=== PATIENT | female | born 1975 | race Caucasian/White ===

== ENCOUNTER 2019-08-08 14:09 | Emergency (ER) | payer SELFPAY ==
[~2019-08-08] VITALS: Ht 160 cm; Wt 190.9 kg
[~2019-08-08 14:09] MED LIST: ACHYD1T PO; ALBU17AE23; ALBU17AE3; ASP325T PO; BIRTHCONTROL PO; CEPH-38 PO; DCS100C PO; DOXY-233 PO; DOXY100C2 PO; EMPA10TA PO; FLUT1DIS26; FLUT1DIS26 IH; FURO20TA4; FURO40TA4 PO; HYDR-34 PO; HYOS0.1216 PO; HYOS0.3710 PO; IBP800T PO; IBUP-15; IPRA3AMP19 IH; KCL20TCR PO; MECL25TA3 PO; METF-380 PO; METH4TAB PO; NYST15CR3 TP; ONDA-42 SL; PHEN37.53 PO; PROGESTERONE; TRAM-21 PO; TRM50T PO; WRF2T PO; birth control PO
--- NOTE | 2019-08-08 14:33 | ED Lower Extremity ---
General Chief Complaint: Lower Extremity Stated Complaint: FALL Nursing Triage Note: TO ED PER EMS FROM [facility]. SHE WAS WALKING IN TO [facility] WHEN SHE TRIPPED AND FELL. C/O PAIN R KNEE ABRASION WITH SM BRUISE NOTED ON KNEE. PAIN IN L ANKLE. Nursing Sepsis Screen: No Definite Risk History of Present Illness Date Seen by Provider: Aug 08, 2019 Time Seen by Provider: 14:15 Initial Comments 44-year-old female presents via EMS after falling in a parking lot pothole and unable to get up on her own. She is complaining of pain to her right knee and left ankle. She is doing steroid injections on her right knee and had one yesterday. She denies any other injuries related to the fall. She has s prained her ankle in the past. She is having hydrocodone for chronic back pain. Onset: just prior to arrival Pain/Injury Location: right knee; left ankle Method of Injury: fell Modifying Factors: Improves With Rest Allergies and Home Medications Allergies Coded Allergies: ampicillin (Unverified Allergy, Mild, RASH, CHILLS, DIARRHEA, VOMITING, 03/20/13) meperidine HCl (Verified Allergy, Unknown, 12/21/14) Home Medications Empagliflozin 10 Mg Tablet, 10 MG PO DAILY, (Reported) Meclizine HCl 25 Mg Tablet, 25 MG PO Q6H PRN for dizziness Prescribed by: JUDD VACA on 12/21/14 1551 Phentermine HCl 37.5 Mg Tablet, 37.5 MG PO DAILY, (Reported) Patient Home Medication List Home Medication List Reviewed: Yes Review of Systems Constitutional: no symptoms reported, see HPI Cardiovascular: no symptoms reported, see HPI Musculoskeletal: see HPI, joint pain (left ankle and foot, right knee), joint swelling ( left ankle) All Other Systems Reviewed Negative Unless Noted: Yes Past Nnpbsig-Iyssas-Ozxlyk Hx Past Med/Social Hx: Reviewed Nursing Past Med/Soc Hx Patient Social History Alcohol Use: Denies Use Recreational Drug Use: No Smoking Status: Never a Smoker Recent Foreign Travel: No Contact w/Someone Who Travel: No Recent Infectious Disease Expo: No Recent Hopitalizations: Yes Seasonal Allergies Seasonal Allergies: Yes Past Medical History Surgeries: Yes (NOE FILTER) Section, 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 Respiratory: Yes Asthma Cardiac: Yes (BLOOD CLOTS) Neurological: No 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 oz. 169.814970iz; 74.00 BMI Method:Stated General Appearance: WD/WN, no apparent distress, obese (Morbid) Cardiovascular: normal peripheral pulses, regular rate, rhythm, no murmur Respiratory: chest non-tender, lungs clear, normal breath sounds Hips: bilateral hip non-tender, bilateral hip normal inspection, bilateral hip normal range of motion Knees: right knee joint effusion (small), right knee soft tissue tenderness, right knee other (superficial abrasion, medial anterior) Ankles: left ankle normal inspection, left ankle normal range of motion, left ankle bone tenderness (medial), left ankle soft tissue tenderness Feet: bilateral foot non-tender, bilateral foot normal inspection, bilateral foot normal range of motion Neurologic/Tendon: normal sensation, normal motor functions, normal tendon functions Neurologic/Psychiatric: no motor/sensory deficits, alert, normal mood/affect, oriented x 3 Skin: normal color, warm/dry Progress/Results/Core Measures Results/Orders My Orders Orders - AR EHCK Knee, Right, 3 Views (08/08/19 14:22) Foot, Left, 3 Views (08/08/19 14:22) Ankle, Left, 3 Views (08/08/19 14:22) Dipht,Pertuss(Acell),Tet Adult (Boostrix (08/08/19 14:45) Medications Given in ED Current Medications Medications Dose Ordered Sig/Armando Route Start Time Stop Time Status Last Admin Dose Admin Diphtheria/ Tetanus/Acell Pertussis 0.5 ml ONCE ONCE IM 08/08/19 14:45 08/08/19 14:46 DC 08/08/19 15:14 0.5 ML Vital Signs/I&O 08/08/19 14:11 Temp 36.7 Pulse 82 Resp 18 B/P (MAP) 176/99 (124) Pulse Ox 98 O2 Delivery Room Air Blood Pressure Mean: 124 Progress Progress Note : Time: 14:15 Progress Note Patient seen and evaluated, ice packs to right knee and left ankle. We'll obtain x-rays. Tetanus vaccine. Diagnostic Imaging Diagonstic Imaging: Xray Plain Films/CT/US/NM/MRI: ankle Comments NAME: BRADEN HARE [facility] REC#: [id number] PT STATUS: REG ER : 1975 PHYSICIAN: AR HECK ADMIT DATE: 08/08/19/ER Draft Date of Exam:08/08/19 ANKLE, LEFT, 3 VIEWS INDICATION: Fall. Possible injury. COMPARISON: None. FINDINGS: Three radiographic views of the left ankle were obtained. There is small linear area of extraosseous density adjacent to the distal tip of the fibula. Findings could be on the basis of acute avulsion fracture. No other acute appearing osseous abnormality is seen. Joint spaces are maintained. No unexpected radiopaque foreign bodies are seen. IMPRESSION: Potential acute avulsion fracture of the distal fibula. Dictated on workstation # [id number] Dict: 08/08/19 1508 Trans: 08/08/19 1510 [id number] Interpreted by: CINTHYA KNIGHT MD Electronically signed by: Reviewed: Reviewed by Me Diagonstic Imaging: Xray Plain Films/CT/US/NM/MRI: other (foot) Comments NAME: BRADEN HARE [facility] REC#: [id number] PT STATUS: REG ER : 1975 PHYSICIAN: AR HECK ADMIT DATE: 08/08/19/ER Draft Date of Exam:08/08/19 FOOT, LEFT, 3 VIEWS INDICATION: Fall. Possible injury. COMPARISON: None. FINDINGS: Three views of the left foot demonstrate no acute fracture or dislocation. There are no focal osseous lesions. There is no soft tissue swelling. Joint spaces are well maintained. No radiopaque foreign bodies are seen. IMPRESSION: No acute fractures or dislocations of the left foot. Dictated on workstation # [id number] Dict: 08/08/19 1510 Trans: 08/08/19 1512 [facility] [id number] Interpreted by: CINTHYA KNIGHT MD Electronically signed b Comments [facility] [place], [place] NAME: BRADEN HARE [facility] REC#: [id number] PT STATUS: REG ER : 1975 PHYSICIAN: AR HECK ADMIT DATE: 08/08/19/ER Draft Date of Exam:08/08/19 KNEE, RIGHT, 3 VIEWS CLINICAL INDICATION: Patient fell in [employer] parking lot today and was unable to get up. Patient's left ankle is swelling with right knee numbness. EXAM: X-ray of the right knee, 3 views. COMPARISON: X-rays of the right knee dated 02/25/2008. FINDINGS: There is no acute fracture or dislocation. There is severe medial compartment narrowing. There are moderately hypertrophic spurs involving the mediolateral compartment and small spurs along the patellofemoral compartment. There is no gross knee effusion. Vascular calcifications and soft tissue calcifications are noted. IMPRESSION: Degenerative disease of the right knee with no gross acute fracture or dislocation. Dictated on workstation # [id number] Dict: 08/08/19 1507 Trans: 08/08/19 1512 [id number] Interpreted by: VIVEK ROWELL MD Electronically signed by: Reviewed: Reviewed by Me Departure Impression Primary Impression: Fall Qualified Codes: W19.XXXA - Unspecified fall, initial encounter Additional Impressions: Contusion of right knee Qualified Codes: S80.01XA - Contusion of right knee, initial encounter Left ankle sprain Qualified Codes: S93.492A - Sprain of other ligament of left ankle, initial encounter Avulsion fracture of ankle Qualified Codes: S82.892A - Other fracture of left lower leg, initial encounter for closed fracture Disposition: HOME, SELF-CARE Condition: Improved Departure-Patient Inst. Decision time for Depature: 15:15 Referrals: KATHI ALVAREZ MD (PCP/Family) Primary Care Physician Patient Instructions: Ankle Sprain (DC) Add. Discharge Instructions: Ice and elevate right knee and left ankle. Follow-up with your primary care provider in approximately one week to reevaluate the right knee and left ankle. Continue to use her home pain medication as needed. Use a cane holding it in your right hand or crutches, partial weight bearing left ankle. Manav wrap to left ankle and right knee as tolerated. Air cast to left ankle, when ambulating. Gentle ROM to left ankle and right knee. Aspirin 325 mg, one daily. Return to the emergency department for new, urgent health care needs. All discharge instructions reviewed with patient and/or family. Voiced understyancy hamm. Copy Copies To 1: KATHI ALVAREZ MD, AMY ARNP Aug 08, 2019 14:33
[2019-08-08] MEDS ORDERED: TETANUS,DIPTH,PERTUSS P/F (BOOSTRIX) 0.5 ML VIAL IM ONE (14:45)
--- NOTE | 2019-08-08 15:10 | Diagnostic Imaging Report ---
INDICATION: Fall. Possible injury. COMPARISON: None. FINDINGS: Three radiographic views of the left ankle were obtained. There is small linear area of extraosseous density adjacent to the distal tip of the fibula. Findings could be on the basis of acute avulsion fracture. No other acute appearing osseous abnormality is seen. Joint spaces are maintained. No unexpected radiopaque foreign bodies are seen. IMPRESSION: Potential acute avulsion fracture of the distal fibula. Dictated by: Dictated on workstation # [id number]
--- NOTE | 2019-08-08 15:12 | Diagnostic Imaging Report ---
CLINICAL INDICATION: Patient fell in [employer] [place] today and was unable to get up. Patient's left ankle is swelling with right knee numbness. EXAM: X-ray of the right knee, 3 views. COMPARISON: X-rays of the right knee dated 02/25/2008. FINDINGS: There is no acute fracture or dislocation. There is severe medial compartment narrowing. There are moderately hypertrophic spurs involving the mediolateral compartment and small spurs along the patellofemoral compartment. There is no gross knee effusion. Vascular calcifications and soft tissue calcifications are noted. IMPRESSION: Degenerative disease of the right knee with no gross acute fracture or dislocation. Dictated by: Dictated on workstation # [id number]
--- NOTE | 2019-08-08 15:12 | Diagnostic Imaging Report ---
INDICATION: Fall. Possible injury. COMPARISON: None. FINDINGS: Three views of the left foot demonstrate no acute fracture or dislocation. There are no focal osseous lesions. There is no soft tissue swelling. Joint spaces are well maintained. No radiopaque foreign bodies are seen. IMPRESSION: No acute fractures or dislocations of the left foot. Dictated by: Dictated on workstation # [id number]
[2019-08-08] MEDS ORDERED: HYDROcodone/APAP 5 MG/325 MG (LORTAB) TAB PO ONE (15:45)
[2019-08-08 15:54] VITALS: BP 164/116
--- NOTE | 2019-08-08 15:54 | NUR ---
YUMIKO AND AIR CAST APPLIED BY Danilo HECK APRN.
== END 2019-08-08 15:54 | disposition home or self-care (01) ==
LOC: EDUNIT# 14:09 → ER 14:10
DX: S80.01XA Contusion of right knee, initial encounter (principal); S93.492A Sprain of other ligament of left ankle, initial encounter; S82.402A Unspecified fracture of shaft of left fibula, initial encounter for closed fracture; W19.XXXA Unspecified fall, initial encounter; Y92.481 Parking lot as the place of occurrence of the external cause; M54.9 Dorsalgia, unspecified; G89.29 Other chronic pain; M17.11 Unilateral primary osteoarthritis, right knee
CPT/HCPCS: 73562; 73610; 73630; 90715

== ENCOUNTER → 2019-10-22 | Outpatient (CLI) | payer OTHER | LOC: CARD 13:30 | PROVIDERS: ATTEND Family Medicine | DX: E66.01 Morbid (severe) obesity due to excess calories (principal); R06.02 Shortness of breath ==

== ENCOUNTER → 2020-03-20 | Outpatient (CLI) | payer OTHER ==
--- NOTE | 2020-03-20 13:03 | Diagnostic Imaging Report ---
PROCEDURE: US right lower extremity venous. TECHNIQUE: Multiple real-time grayscale images were obtained over the right lower extremity in various projections. Additional spectral analysis and color Doppler duplex images were also obtained. INDICATION: Right calf pain. FINDINGS: Study is somewhat compromised due to patient body habitus. There is no evidence of right lower extremity DVT. Right lower extremity deep venous system shows normal compressibility with normal response to augmentation and Valsalva. No fluid collection or mass is detected. IMPRESSION: No evidence of right lower extremity DVT. Dictated by: Dictated on workstation # [id number]
== END ==
LOC: RAD 11:01
PROVIDERS: ATTEND Nurse Practitioner
DX: M79.661 Pain in right lower leg (principal)

== ENCOUNTER 2021-01-12 06:10 | Outpatient (CLI) | payer SELFPAY ==
[~2021-01-12] VITALS: Ht 160 cm; Wt 181.1 kg
[~2021-01-12 06:10] MED LIST changes: -PHEN37.53 PO; +PHEN37.58 PO
[2021-01-13] MEDS ORDERED: MELO7.5T46 PO (11:16)
[2021-01-13] MEDS ORDERED: FLUT1DIS26 IH (11:16)
[2021-01-13] MEDS ORDERED: RT-ALBUINH IH (11:16)
[2021-01-13] MEDS ORDERED: ACHD5005 PO (11:16)
== END 2021-01-13 11:17 ==
LOC: PREOP 06:10
PROVIDERS: ATTEND Podiatrist Foot & Ankle Surgery
DX: Z01.818 Encounter for other preprocedural examination (principal)

== ENCOUNTER 2021-01-16 11:12 | Day surgery (SDC) | payer SELFPAY ==
[2021-01-16] VITALS (10 sets, daily range): BP systolic 121–149; BP diastolic 76–99
[~2021-01-16] VITALS: Ht 160 cm; Wt 181.1 kg
[~2021-01-16 11:12] MED LIST changes: +ACHD5005 PO; +MELO7.5T46 PO; +RT-ALBUINH IH
[2021-01-16] MEDS ORDERED: CLINDAMYCIN 600 MG/50 ML IVPB 50 ML IV ONE (11:30)
[2021-01-16] MEDS ORDERED: LACTATED RINGERS 1,000 ML IV PRN (11:30)
[2021-01-16] MEDS ORDERED: fentaNYL INJ 100 MCG/2 ML AMP ONE (11:37)
[2021-01-16] MEDS ORDERED: proPOfol 200 MG/20 ML (DIPRIVAN) VIAL IV ONE (11:37)
[2021-01-16] MEDS ORDERED: LIDOCAINE PF 2% 5 ML (XYLOCAINE) VIAL ONE (11:37)
[2021-01-16] MEDS ORDERED: MIDAZOLAM 2 MG/2 ML (VERSED) VIAL ONE (11:37)
[2021-01-16] MEDS ORDERED: ONDANSETRON 4 MG/2 ML (SDV) Z0FRAN ONE (11:37)
[2021-01-16] MEDS ORDERED: LIDOCAINE 1% INJ 20 ML 20 ML VIAL ONE (12:10)
[2021-01-16] MEDS ORDERED: BUPIVACAINE 0.5% 30 ML (SENSORCAINE) VIAL ONE (12:10)
--- NOTE | 2021-01-16 12:34 | Progress Note-Pre Operative ---
Pre-Operative Progress Note H&P Reviewed The H&P was reviewed, patient examined and no changes noted. Date Seen by Provider: Jan 16, 2021 Time Seen by Provider: 12:33 Date H&P Reviewed: Jan 16, 2021 Time H&P Reviewed: 12:33 Pre-Operative Diagnosis: Plantar Fasciitis, left JED ROQUE DPM Jan 16, 2021 12:34
[2021-01-16] MEDS ORDERED: MIDAZOLAM 2 MG/2 ML (VERSED) VIAL IV ONE (12:45)
[2021-01-16] MEDS ORDERED: SEVOFLURANE (ULTANE) 15 ML INHAL SOLN ONE (13:31)
--- NOTE | 2021-01-16 13:37 | Progress Note-Post Operative ---
Post-Operative Progess Note Surgeon (s)/Record Pressman (s) Surgeon JED ROQUE DPM Record Pressman: none Pre-Operative Diagnosis Plantar Fasciitis, left Post-Operative Diagnosis same Procedure & Operative Findings Date of Procedure 01/16/21 Procedure Performed/Findings Endoscopic Plantar Fascial release, left Anesthesia Type General Estimated Blood Loss Estimated blood loss (mL): Minimal Specimens/Packing Specimens Removed None JED ROQUE DPM Jan 16, 2021 13:37
[2021-01-16] MEDS ORDERED: ACHD5005 PO (13:40)
[2021-01-16] MEDS ORDERED: morphine INJ 10 MG/ML 1ML (SYR OR VIAL) IVP ONE (13:45)
[2021-01-16] MEDS ORDERED: ONDANSETRON 4 MG/2 ML (SDV) Z0FRAN IVP PRN (13:45)
[2021-01-16] MEDS ORDERED: LACTATED RINGERS 1,000 ML IV SCH (13:45)
[2021-01-16] MEDS ORDERED: PROMETHAZINE INJ 25 MG/ML (PHENERGAN) AMP IVP ONE (13:45)
[2021-01-16] MEDS ORDERED: HYDROmorphone 2 MG/ML VIAL (DILAUDID) IV ONE (13:45)
[2021-01-16] MEDS ORDERED: HYDROcodone/APAP 5 MG/325 MG (LORTAB) TAB PO PRN (13:45)
--- NOTE | 2021-01-16 15:02 | Anesthesia-General Post-Op ---
General Patient Condition Mental Status/LOC: Same as Preop Cardiovascular: Satisfactory Nausea/Vomiting: Absent Respiratory: Satisfactory Pain: Controlled Complications: Absent Post Op Complications Complications None Follow Up Care/Instructions Patient Instructions None needed. Anesthesia/Patient Condition Patient Condition Patient is doing well, no complaints, stable vital signs, no apparent adverse anesthesia problems. No complications reported per nursing. ANGEL TANG CRNA Jan 16, 2021 15:02
--- NOTE | 2021-01-16 15:46 | Physical Therapy Ortho Eval ---
PT Orthopedic Evaluation Type of Surgery left plantar fasciitis Prior Level of Function Current Living Status: Spouse Locomotion (Upon Admit): Independent Established Durable Medical Eq: Standard Walker Subjective Subjective Patient in bed pre tx, agrees to PT, has no pain, states her left foot is pretty numb, she can move her toes and ankle. Entry Into Home: Stairs Without Railing Other Obstacles: Patient states the stair to enter her home is very small Motor Control Motor Control: Motor Control WNL ROM ROM: WFL Transfer SCALE: Activities may be completed with or without assistive devices. 9-Jhzsmfexew-aferool completes the activity by him/herself with no assistance from a helper. 5-Set-up or Clean-up Assistance-helper sets up or cleans up; patient completes activity. [place] assists only prior to or following the activity. 4-Supervision or Touching Assistance-helper provides verbal cues and/or touching/steadying and/or contact guard assistance as patient completes activity. Assistance may be provided throughout the activity or intermittently. 3-Partial/Moderate Assistance-helper does LESS THAN HALF the effort. T[place]en lifts, holds or supports trunk or limbs, but provides less than half the effort. 2-Substantial/Maximal Assistance-helper does MORE THAN HALF the effort. [place] lifts or holds trunk or limbs and provides more than half the effort. 1-Wkmvhsybw-hegrov does ALL the effort. Patient does none of the effort to complete the activity. Or, the assistance of 2 or more helpers is required for the patient to complete the activity. If activity was not attempted, code reason: 7-Patient Refused. 9-Not Applicable-not attempted and the patient did not perform the activity before the current illness, exacerbation or injury. 10-Not Attempted due to Environmental Limitations-(lack of equipment, weather restraints, etc.). 88-Not Attempted due to Medical Conditions or Safety Concerns. Transfers (B, C, W/C) (QC): 4 Gait Right Lower Extremity: Right Weight Bearing Status RLE: Full Weight Bearing Left Lower Extremity: Left Weight Bearing Status LLE: Non Weight Bearing Other Weight Bearing Inst.: She will be Partial Weight bearing (left foot) after 24 hours with crutches Summary/Comments Patient can stand with CGA, perform a stand pivot transfer with CGA but she cannot ambulate without violating her weight bearing status. Patient cannot ambulate using a rolling walker. A wheelchair was obtained and she was transported to the restroom where she performed a stand pivot transfer with CGA to the toilet and off of the toilet. Nurse notified of the situation. Wheelchair Wheelchair (QC): 4 Distance: 30' Treatment Rendered Treatment: Therapeutic Exercises, Gait Train Exercise Instruction: Ankle Pumps, Other (toe flex/ext) Assessment/Goals Goal Time Frame: 1 Visit Understands HEP: Yes Safe Ambulation: No Plan Treatment Plan: Discharge PT/Family Agrees to Plan: Yes Time Time In: 1525 Time Out: 1536 Total Billed Treatment Time: 11 Billed Treatment Time 1 visit EV 11' KEARA BETANCOURT PT Jan 16, 2021 15:46
--- NOTE | 2021-01-16 19:34 | OPERATIVE REPORT ---
DATE OF SERVICE: 01/16/2021 SURGEON: Maite Roque DPM. PREOPERATIVE DIAGNOSIS: Plantar fasciitis, left foot. POSTOPERATIVE DIAGNOSIS: Plantar fasciitis, left foot. PROCEDURE: Endoscopic plantar fascial release, left foot. WOUND CLASS: Clean. ANESTHESIA: General. HEMOSTASIS: Pneumatic ankle tourniquet at 250 mmHg. INDICATIONS: This 45-year-old female presents complaining of a painful left heel. This chronic pain has been unresponsive to conservative treatment and she is willing to pursue surgical intervention after risk and complications were discussed at length. No guarantees were extended to the patient and she is willing to proceed. DESCRIPTION OF PROCEDURE: The patient was brought back to the operating table, placed in secure supine position. Appropriate timeout was performed. A general anesthetic was induced. A pneumatic ankle tourniquet was placed on the left lower extremity over several layers of padding. The left foot was then prepped and draped in normal sterile manner. The left foot was then elevated and allowed to exsanguinate after which the tourniquet was inflated to 250 mmHg. Attention was then directed to the medial aspect of the left heel where a 0.5 cm vertical incision was created at the juncture of the plantar and dorsal skin just anterior to the calcaneal tuberosity area. The incision was deepened in the same plane with blunt dissection where the plantar fascia was palpated. Next, a blunt blade was applied along the inferior aspect of the plantar fascia the plantar fascia from its overlying adipose tissue. Next, an obturator and cannula were introduced into the medial incision along the inferior plantar fascia and then tenting the lateral skin of the left heel. A second 0.5 cm vertical incision was created allowing the obturator and cannula to pass through the lateral portal area. Attention was then directed to the medial portal after the obturator was withdrawn. The cannula was held in place. A 30-degree 3 mm camera was introduced into the lateral portal visualizing the inferior aspect of the plantar fascia. The medial third of the plantar fascia was released under direct visualization utilizing with a hook blade followed by a triangular blade. Percutaneous palpation of the medial arch indicated good reduction of the tension to the plantar fascia, also with direct visualization of the release was good confirmation of adequate and appropriate release of the medial band of the plantar fascia. The instrumentation was withdrawn from the foot after which the wound was flushed after the cannula was then withdrawn as well. The area was then inspected and no other abnormalities were identified. The skin closure was performed with a simple interrupted type stitch with 4-0 Prolene both to the medial and lateral incisions. Postoperative injection consisted of 10 mL of 0.5% Marcaine injected in a local infusion to the surgical sites. An additional 10 mg of dexamethasone was injected into the medial plantar aspect of the left heel. Postoperative dressing consisted of Betadine soaked Adaptic, sterile 4 x 4, sterile Kerlix all secured with Coban wrap. The patient tolerated the anesthesia and procedure well, was transported from the operating room to the recovery room with vital signs stable and vascular status intact to all the digits of the left foot. She is to be nonweightbearing for the first 24 hours and then proceed to partial weightbearing to tolerance. We will see her back in the office in 10 days' period of time or sooner if necessary. Job ID: [id number] DocumentID: [id number] Dictated Date: 01/16/2021 13:51:17 Windows Application Packager Date: 01/16/2021 19:33:06 Dictated By: MAITE ROQUE DPM
== END 2021-01-16 15:50 | disposition home or self-care (01) ==
LOC: SDC 11:12
PROVIDERS: ATTEND Podiatrist Foot & Ankle Surgery
DX: M72.2 Plantar fascial fibromatosis (principal); J45.909 Unspecified asthma, uncomplicated; E66.01 Morbid (severe) obesity due to excess calories; Z68.45 Body mass index [BMI] 70 or greater, adult; Z98.890 Other specified postprocedural states; Z79.899 Other long term (current) drug therapy; Z79.891 Long term (current) use of opiate analgesic; Z88.1 Allergy status to other antibiotic agents
CPT/HCPCS: 87081

== ENCOUNTER 2021-04-04 12:22 | Emergency (ER) | payer OTHER ==
[~2021-04-04] VITALS: Ht 160 cm; Wt 186.0 kg
--- NOTE | 2021-04-04 12:41 | ED Cough/URI ---
General Chief Complaint: Cough/Cold/Flu Symptoms Stated Complaint: ASTHMA ATTACK Source: patient Exam Limitations: no limitations History of Present Illness Date Seen by Provider: Apr 04, 2021 Time Seen by Provider: 12:25 Initial Comments 45-year-old female with past medical history of asthma and remote history of DVT/PE now off of anticoagulation with an IVC filter in place coming in due to what she states is an asthma attack. She said day she began having a cough and feeling cold which her son had last week. Yesterday began feeling like she was wheezing and like her asthma was flaring up. Began using her breathing treatments, but she believes they are , and she does not believe they have been helping her as much as they usually would now. But she said several hours ago with little help. Denies any new leg swelling or pain. Denies any hemoptysis. Denies any surgery within the past month. Currently denying any chest pain or fever. Allergies and Home Medications Allergies Coded Allergies: ampicillin (Unverified Allergy, Mild, RASH, CHILLS, DIARRHEA, VOMITING, 03/20/13) meperidine HCl (Verified Allergy, Unknown, 12/21/14) Patient Home Medication List Home Medication List Reviewed: Yes Albuterol Sulfate (Proair Hfa) 1 Puff Puff, 2 PUFF IH Q6H PRN for WHEEZING, (Reported) Entered as Reported by: PAZ MACIEL on 01/13/21 1116 Albuterol Sulfate (Proair Hfa) 1 Puff Puff, 2 PUFF IH Q4H Prescribed by: IGOR JOHNS on 04/04/21 1352 Fluticasone/Salmeterol (Advair 250-50 Diskus) 1 Each Blst.w.dev, 1 EACH IH BID, (Reported) Entered as Reported by: PAZ MACIEL on 01/13/21 1116 Fluticasone/Salmeterol (Advair 250-50 Diskus) 1 Each Blst.w.dev, 1 EACH IH BID Prescribed by: IGOR JOHNS on 04/04/21 1352 Hydrocodone/Acetaminophen (Hydrocodone-Acetamin 5-325 mg) 1 Each Tablet, 1 TAB PO DAILY, (Reported) Entered as Reported by: PAZ MACIEL on 01/13/21 1116 Hydrocodone/Acetaminophen (Hydrocodone-Acetamin 5-325 mg) 1 Each Tablet, 1 TAB PO Q4H PRN for PAIN-MODERATE (5-7) Prescribed by: JED ROQUE on 01/16/21 1341 Meloxicam (Meloxicam) 7.5 Mg Tablet, 7.5 MG PO BID, (Reported) Entered as Reported by: PAZ MACIEL on 01/13/21 1116 Review of Systems Review of Systems Constitutional: No chills, No fever EENTM: No blurred vision Respiratory: cough; No hemoptysis; short of breath Cardiovascular: No chest pain Gastrointestinal: No abdominal pain, No diarrhea, No nausea, No vomiting Genitourinary: no symptoms reported Musculoskeletal: no symptoms reported Skin: no symptoms reported Psychiatric/Neurological: No Symptoms Reported Hematologic/Lymphatic: No Symptoms Reported Immunological/Allergic: no symptoms reported All Other Systems Reviewed Negative Unless Noted: Yes Past Hyszlxk-Iyvyku-Mttaoc Hx Patient Social History Tobacco Use?: No Immunizations Up To Date First/Initial COVID19 Vaccinat: 01/06/21 Second COVID19 Vaccination Pito: 01/06/21 Third COVID19 Vaccination Date: 01/06/21 Seasonal Allergies Seasonal Allergies: Yes Past Medical History Surgeries: Yes (cerclage, c/s x2, NOE FILTER,) Section, 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 Respiratory: Yes Asthma Currently Using CPAP: No Currently Using BIPAP: No Cardiac: Yes (BLOOD CLOTS) Neurological: No Reproductive Disorders: Yes (DUB, MENORRHAGIA) [employer] History: 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 Genitourinary: No Gastrointestinal: Yes Irritable Bowel Musculoskeletal: Yes Degenerate Disk Disease, Chronic Back Pain Endocrine: No HEENT: No Cancer: No Psychosocial: No Integumentary: No Blood Disorders: No Physical Exam Vital Signs - First Documented 04/04/21 12:35 Temp 35.7 Pulse 86 Resp 16 B/P (MAP) 178/95 (122) Pulse Ox 99 O2 Delivery Room Air Capillary Refill : Height: 5'3" Weight: 373lbs. oz. 169.108527vk; 70.74 BMI Method:Stated General Appearance: WD/WN, mild distress HEENT: PERRL/EOMI, normal ENT inspection, pharynx normal Neck: non-tender, full range of motion, supple, normal inspection Respiratory: chest non-tender, no accessory muscle use, wheezing Cardiovascular: regular rate, rhythm, no edema, no murmur Gastrointestinal: normal bowel sounds, non tender, soft; No guarding, No rebound Extremities: normal range of motion, non-tender, normal inspection, no pedal edema, no calf tenderness, normal capillary refill Neurologic/Psychiatric: no motor/sensory deficits, alert, normal mood/affect Skin: normal color, warm/dry Lymphatic: no adenopathy Progress/Results/Core Measures Suspected Sepsis SIRS Temperature: Pulse: Respiratory Rate: Laboratory Tests 04/04/21 12:30: White Blood Count 9.1 Blood Pressure / Mean: Laboratory Tests 04/04/21 12:30: Creatinine 0.76, INR Comment 1.0, Platelet Count 225, Total Bilirubin 0.5 Results/Orders Lab Results Laboratory Tests Test 04/04/21 12:30 Range/Units White Blood Count 9.1 4.3-11.0 10^3/uL Red Blood Count 4.37 3.80-5.11 10^6/uL Hemoglobin 13.8 11.5-16.0 g/dL Hematocrit 41 35-52 % Mean Corpuscular Volume 94 80-99 fL Mean Corpuscular Hemoglobin 32 25-34 pg Mean Corpuscular Hemoglobin Concent 34 32-36 g/dL Red Cell Distribution Width 12.1 10.0-14.5 % Platelet Count 225 130-400 10^3/uL Mean Platelet Volume 9.9 9.0-12.2 fL Immature Granulocyte % (Auto) 0 % Neutrophils (%) (Auto) 69 42-75 % Lymphocytes (%) (Auto) 20 12-44 % Monocytes (%) (Auto) 6 0-12 % Eosinophils (%) (Auto) 4 0-10 % Basophils (%) (Auto) 1 0-10 % Neutrophils # (Auto) 6.2 1.8-7.8 10^3/uL Lymphocytes # (Auto) 1.8 1.0-4.0 10^3/uL Monocytes # (Auto) 0.6 0.0-1.0 10^3/uL Eosinophils # (Auto) 0.4 H 0.0-0.3 10^3/uL Basophils # (Auto) 0.1 0.0-0.1 10^3/uL Immature Granulocyte # (Auto) 0.0 0.0-0.1 10^3/uL Prothrombin Time 13.3 12.2-14.7 SEC INR Comment 1.0 0.8-1.4 Activated Partial Thromboplast Time 29 24-35 SEC D-Dimer 0.89 H 0.00-0.49 UG/ML Sodium Level 138 135-145 MMOL/L Potassium Level 4.0 3.6-5.0 MMOL/L Chloride Level 105 98-107 MMOL/L Carbon Dioxide Level 20 L 21-32 MMOL/L Anion Gap 13 5-14 MMOL/L Blood Urea Nitrogen 10 7-18 MG/DL Creatinine 0.76 0.60-1.30 MG/DL Estimat Glomerular Filtration Rate 82 BUN/Creatinine Ratio 13 Glucose Level 104 70-105 MG/DL Calcium Level 8.8 8.5-10.1 MG/DL Corrected Calcium 8.9 8.5-10.1 MG/DL Total Bilirubin 0.5 0.1-1.0 MG/DL Aspartate Amino Transf (AST/SGOT) 19 5-34 U/L Alanine Aminotransferase (ALT/SGPT) 17 0-55 U/L Alkaline Phosphatase 73 40-136 U/L Troponin I < 0.028 <0.028 NG/ML B-Type Natriuretic Peptide 34.6 <100.0 PG/ML Total Protein 7.8 6.4-8.2 GM/DL Albumin 3.9 3.2-4.5 GM/DL SARS-CoV-2 RNA (RT-PCR) Not Detected Not Detecte My Orders Orders - IGOR JOHNS MD Ekg Tracing (04/04/21 12:32) Monitor-Rhythm Ecg Trace Only (04/04/21 12:32) BNP (04/04/21 12:32) Cbc With Automated Diff (04/04/21 12:32) Comprehensive Metabolic Panel (04/04/21 12:32) Fibrin Degradation Products (04/04/21 12:32) Protime With Inr (04/04/21 12:32) Partial Thromboplastin Time (04/04/21 12:32) Troponin I (04/04/21 12:32) Covid 19 Inhouse Test (04/04/21 12:32) Albuterol/Ipra Inhalation Soln (Duoneb I (04/04/21 12:45) Dexamethasone Injection (Decadron Injec (04/04/21 12:45) Ct Angio Chest W (04/04/21 13:09) Iohexol Injection (Omnipaque 350 Mg/Ml 1 (04/04/21 13:30) Received Contrast (Hold Metformin- Contr (04/04/21 13:30) Ns (Ivpb) (Sodium Chloride 0.9% Ivpb Bag (04/04/21 13:30) Medications Given in ED Current Medications Medications Dose Ordered Sig/Armando Route Start Time Stop Time Status Last Admin Dose Admin Albuterol/ Ipratropium 3 ml ONCE ONCE IH 04/04/21 12:45 04/04/21 12:47 DC 04/04/21 14:04 3 ML Dexamethasone Sodium Phosphate 10 mg ONCE ONCE IV 04/04/21 12:45 04/04/21 12:47 DC 04/04/21 13:14 10 MG Iohexol 100 ml ONCE ONCE IV 04/04/21 13:30 04/04/21 13:31 DC 04/04/21 13:34 100 ML Sodium Chloride 100 ml ONCE ONCE IV 04/04/21 13:30 04/04/21 13:31 DC 04/04/21 13:34 80 ML Vital Signs/I&O 04/04/21 04/04/21 12:35 14:06 Temp 35.7 Pulse 86 Resp 16 B/P (MAP) 178/95 (122) Pulse Ox 99 100 O2 Delivery Room Air Room Air Capillary Refill : Progress Note : Progress Note 45-year-old female with above history coming in because she is acutely feeling short of breath and feels like she is having an asthma attack. ABCs were intact and vitals were stable on presentation although she is breathing fast. She has some mild wheezing on exam and does appear to be moving air. Will trial a DuoNeb as well as Decadron given her history of asthma. No signs or symptoms of a DVT. She does have an IVC filter in place, however has been in place for many for at least a couple years. Per Chase criteria she has a least moderate risk for a PE. We will do a D-dimer to further risk stratify her. Also send basic labs including cardiac biomarkers and a Covid test. Chest x-ray also ordered. Covid test negative, cardiac biomarkers normal, normal kidney function. D-dimer unfortunately elevated. CTA chest ordered and interpreted by me showing no pneumonia, pneumothorax, no large pulmonary embolism. Following up after her breathing treatment and steroid injection, she was significantly better. This does seem more consistent with an asthma exacerbation at this time that is mild. I suspect like the patient was stating that her albuterol is and not functioning as well. She also likely has a URI which made symptoms worse. I believe she is stable for discharge. She was sent home with strict return precautions ECG Initial ECG Impression Date: Apr 04, 2021 Initial ECG Impression Time: 12:41 Initial ECG Rate: 68 Initial ECG Rhythm: Normal Sinus Comment Narrow QRS, normal axis, no significant ST changes or T wave abnormalities Diagnostic Imaging Diagonstic Imaging: CT Plain Films/CT/US/NM/MRI: chest Comments [facility], [place] NAME: [facility]AD[facility]ARE [facility] REC#: [id number] PT STATUS: REG ER : 1975 PHYSICIAN: IGOR JOHNS MD ADMIT DATE: 04/04/21/ER Draft Date of Exam:04/04/21 CT ANGIO CHEST W PROCEDURE: CT angiography of the chest with contrast. TECHNIQUE: Multiple contiguous axial images were obtained through the chest after uneventful bolus administration of intravenous contrast. 3D reconstructed CTA MIP acquisitions were also performed. Auto Exposure Controls were utilized during the CT exam to meet ALARA standards for radiation dose reduction. INDICATION: Shortness of air. Cough. Elevated D-dimer. History of DVT. IVC filter. COMPARISON: CTA chest 07/28/2011. FINDINGS: No pulmonary emboli. Normal caliber thoracic aorta. Normal heart size. No pericardial effusion. No lymphadenopathy. The lungs are clear. No pleural effusion or pneumothorax. The visualized upper abdominal contents are negative. No acute osseous findings. IMPRESSION: 1. No pulmonary emboli. 2. No acute CT findings in the chest. Dictated on workstation # [id number] Dict: 04/04/21 1344 Trans: 04/04/21 1357 [facility] [id number] Interpreted by: CANDY EAGLE MD Electronically signed by: Departure Impression Primary Impression: Asthma exacerbation Qualified Codes: J45.901 - Unspecified asthma with (acute) exacerbation Additional Impression: URI (upper respiratory infection) Qualified Codes: J06.9 - Acute upper respiratory infection, unspecified Disposition: HOME, SELF-CARE Condition: Stable Departure-Patient Inst. Decision time for Depature: 14:18 Referrals: KATHI ALVAREZ MD (PCP/Family) Primary Care Physician Patient Instructions: Asthma, Adult ED Add. Discharge Instructions: You were seen in the emergency department because you are having trouble breathing has recently been sick. Your Covid test was negative. Your CT of your chest was negative for a blood clot and you do not have pneumonia. We will send a prescription for albuterol to your pharmacy so that is no longer . You did get a long-acting steroid while in the emergency department and this will work for several days. Scripts Fluticasone/Salmeterol (Advair 250-50 Diskus) 1 Each Blst.w.dev 1 EACH IH BID for 30 Days, #1 UNIT 1 Refill Prov: IGOR JOHNS MD 04/04/21 Albuterol Sulfate (PROAIR HFA) 1 Puff Puff 2 PUFF IH Q4H for Wheezing for 30 Days, #1 EA 1 Refill 1 PUFF = 90 MCG Prov: IGOR JOHNS MD 04/04/21 Work/School Note: Work Release Form Date Seen in the Emergency Department: Apr 04, 2021 Return to Work: Apr 06, 2021 Restrictions: No Restrictions IGOR JOHNS MD Apr 04, 2021 12:40
[2021-04-04] MEDS ORDERED: RT-ALBUTEROL/IPRATROPIUM 3 ML (DUONEB) VIAL IH ONE (12:45)
[2021-04-04 12:48] LABS: BASOPHILS # (AUTO) 0.1 10^3/uL (0.0-0.1); BASOPHILS % (AUTO) 1 % (0-10); EOSINOPHILS # (AUTO) 0.4 10^3/uL (0.0-0.3); EOSINOPHILS % (AUTO) 4 % (0-10); HEMATOCRIT 41 % (35-52); HEMOGLOBIN 13.8 g/dL (11.5-16.0); LYMPHOCYTES # (AUTO) 1.8 10^3/uL (1.0-4.0); LYMPHOCYTES % (AUTO) 20 % (12-44); MEAN CORPUSCULAR HEMOGLOBIN 32 pg (25-34); MEAN CORPUSCULAR HGB CONC 34 g/dL (32-36); MEAN CORPUSCULAR VOLUME 94 fL (80-99); MEAN PLATELET VOLUME 9.9 fL (9.0-12.2); MONOCYTES # (AUTO) 0.6 10^3/uL (0.0-1.0); MONOCYTES % (AUTO) 6 % (0-12); NEUTROPHILS # (AUTO) 6.2 10^3/uL (1.8-7.8); NEUTROPHILS % (AUTO) 69 % (42-75); PLATELET COUNT 225 10^3/uL (130-400); WHITE BLOOD COUNT 9.1 10^3/uL (4.3-11.0)
[2021-04-04 12:54] LABS: ALBUMIN 3.9 GM/DL (3.2-4.5); CHLORIDE 105 MMOL/L (98-107); SODIUM 138 MMOL/L (135-145)
[2021-04-04 12:55] LABS: CALCIUM 8.8 MG/DL (8.5-10.1); FIBRIN DEGRADATION PRODUCTS 0.89 UG/ML (0.00-0.49); PROTHROMBIN TIME PATIENT 13.3 SEC (12.2-14.7)
[2021-04-04 12:56] LABS: GLUCOSE 104 MG/DL (70-105); TOTAL PROTEIN 7.8 GM/DL (6.4-8.2)
[2021-04-04 12:57] LABS: CARBON DIOXIDE 20 MMOL/L (21-32)
[2021-04-04 12:58] LABS: BILIRUBIN,TOTAL 0.5 MG/DL (0.1-1.0)
[2021-04-04 13:00] LABS: ALKALINE PHOSPHATASE 73 U/L (40-136); CREATININE SERUM 0.76 MG/DL (0.60-1.30); GFR ESTIMATED 82
[2021-04-04 13:01] LABS: BUN/CREATININE RATIO 13
[2021-04-04 13:03] LABS: ALANINE AMINOTRANSFERASE 17 U/L (0-55)
[2021-04-04] MEDS ORDERED: HOLD METFORMIN - RECEIVED CONTRAST 20 ML VIAL IV SCH (13:30)
[2021-04-04] MEDS ORDERED: NS 100 ML (IVPB) BAG IV ONE (13:30)
[2021-04-04] MEDS ORDERED: IOHEXOL 350 MG/ML 100 ML (OMNIPAQUE 350) VIAL IV ONE (13:30)
[2021-04-04] MEDS ORDERED: RT-ALBUINH IH (13:52)
[2021-04-04] MEDS ORDERED: FLUT1DIS26 IH (13:52)
--- NOTE | 2021-04-04 13:59 | Diagnostic Imaging Report ---
PROCEDURE: CT angiography of the chest with contrast. TECHNIQUE: Multiple contiguous axial images were obtained through the chest after uneventful bolus administration of intravenous contrast. 3D reconstructed CTA MIP acquisitions were also performed. Auto Exposure Controls were utilized during the CT exam to meet ALARA standards for radiation dose reduction. INDICATION: Shortness of air. Cough. Elevated D-dimer. History of DVT. IVC filter. COMPARISON: CTA chest 07/28/2011. FINDINGS: No pulmonary emboli. Normal caliber thoracic aorta. Normal heart size. No pericardial effusion. No lymphadenopathy. The lungs are clear. No pleural effusion or pneumothorax. The visualized upper abdominal contents are negative. No acute osseous findings. IMPRESSION: 1. No pulmonary emboli. 2. No acute CT findings in the chest. Dictated by: Dictated on workstation # [id number]
[2021-04-04] MEDS ORDERED: RT-ALBUTEROL HFA 8.5 GM INHALER IH STA (14:17)
[2021-04-04 14:26] VITALS: BP 178/95
== END 2021-04-04 14:26 | disposition home or self-care (01) ==
LOC: EDUNIT# 12:22 → ER 12:24
DX: J45.901 Unspecified asthma with (acute) exacerbation (principal); G89.29 Other chronic pain; M54.9 Dorsalgia, unspecified; Z79.891 Long term (current) use of opiate analgesic; Z20.822 Contact with and (suspected) exposure to COVID-19
CPT/HCPCS: 36415; 71275; 80053; 83880; 84484; 85025; 85379; 85610; 85730; 87636; 93005; 94640

== ENCOUNTER 2021-11-09 17:55 | Emergency (ER) | payer OTHER ==
[~2021-11-09] VITALS: Ht 160 cm; Wt 175.9 kg
[2021-11-09] MEDS ORDERED: IBUPROFEN 800 MG (MOTRIN) TAB PO STA (19:33)
[2021-11-09] MEDS ORDERED: NS IV 1000 ML 1,000 ML IV SCH (19:45)
[2021-11-09 19:46] LABS: BASOPHILS # (AUTO) 0.1 10^3/uL (0.0-0.1); BASOPHILS % (AUTO) 0 % (0-10); EOSINOPHILS # (AUTO) 0.4 10^3/uL (0.0-0.3); EOSINOPHILS % (AUTO) 2 % (0-10); HEMATOCRIT 46 % (35-52); HEMOGLOBIN 15.1 g/dL (11.5-16.0); LYMPHOCYTES # (AUTO) 2.8 10^3/uL (1.0-4.0); LYMPHOCYTES % (AUTO) 16 % (12-44); MEAN CORPUSCULAR HEMOGLOBIN 31 pg (25-34); MEAN CORPUSCULAR HGB CONC 33 g/dL (32-36); MEAN CORPUSCULAR VOLUME 94 fL (80-99); MEAN PLATELET VOLUME 11.4 fL (9.0-12.2); MONOCYTES # (AUTO) 1.3 10^3/uL (0.0-1.0); MONOCYTES % (AUTO) 8 % (0-12); NEUTROPHILS # (AUTO) 12.8 10^3/uL (1.8-7.8); NEUTROPHILS % (AUTO) 73 % (42-75); PLATELET COUNT 165 10^3/uL (130-400); WHITE BLOOD COUNT 17.5 10^3/uL (4.3-11.0)
[2021-11-09 19:54] LABS: ALBUMIN 4.3 GM/DL (3.2-4.5); BILIRUBIN,TOTAL 0.8 MG/DL (0.1-1.0); CALCIUM 9.4 MG/DL (8.5-10.1); CREATININE SERUM 1.39 MG/DL (0.60-1.30); POTASSIUM 4.1 MMOL/L (3.6-5.0); TOTAL PROTEIN 8.4 GM/DL (6.4-8.2)
--- NOTE | 2021-11-09 20:27 | Diagnostic Imaging Report ---
INDICATION: COVID infection, shortness of breath. Frontal chest obtained at 08:05 p.m. and compared to 07/28/2011. Heart and mediastinal silhouette are normal in appearance. The lungs are clear. There is no pneumothorax or pleural fluid. IMPRESSION: Negative chest. Dictated by: Dictated on workstation # [id number]
[2021-11-09 20:28] LABS: INR 1.1 (0.8-1.4); PARTIAL THROMBOPLASTIN TIME 31 SEC (24-35); PROTHROMBIN TIME PATIENT 14.1 SEC (12.2-14.7)
[2021-11-09 20:29] LABS: FIBRIN DEGRADATION PRODUCTS > 20.00 UG/ML (0.00-0.49)
--- NOTE | 2021-11-09 20:37 | ED Cough/URI ---
General Chief Complaint: COVID19 Suspect/Confirmed Stated Complaint: COVID + 11/01 - SOA- BODYACHES - WEAKNESS Nursing Triage Note: PT TO RM 9 BY WC WITH COMPLAINT OF BODY ACHES, GROIN PAIN, AND SOA. STATES TESTED POSITIVE FOR COVID ON October AND HAS PROGRESSIVELY FELT WORST. STATES STARTED October WITH COLD LIKE SYMPTOMS. PT DOES HAVE IVC FILTER FOR HX OF BLOOD CLOTS. History of Present Illness Date Seen by Provider: Nov 09, 2021 Time Seen by Provider: 18:20 Initial Comments 46-year-old female presents for generalized discomfort, right groin pain, myalgias and shortness of air. She was diagnosed with COVID on November 01. She took a few days of the oral antiviral but had to discontinue it because of side effects. She does have a history of blood clots in the past and has an IVC filter. Sshe has not been taking aspirin daily, was not instructed to. Has albuterol but hasn't used it in 4-5 days, does take Advair daily. SaO2 99-100% on RA, dyspnea secondary to body habitus with BMI 68 Timing/Duration: getting worse Severity/Quality: mild Prior Episodes/Possible Cause: no prior episodes Modifying Factors: Improves With Rest Associated Symptoms: cough, muscle aches, shortness of breath Allergies and Home Medications Allergies Coded Allergies: ampicillin (Unverified Allergy, Mild, RASH, CHILLS, DIARRHEA, VOMITING, 03/20/13) meperidine HCl (Verified Allergy, Unknown, 12/21/14) Patient Home Medication List Home Medication List Reviewed: Yes Albuterol Sulfate (Proair Hfa) 1 Puff Puff, 2 PUFF IH Q6H PRN for WHEEZING, (Reported) Entered as Reported by: PAZ MACIEL on 01/13/21 1116 Albuterol Sulfate (Proair Hfa) 1 Puff Puff, 2 PUFF IH Q4H Prescribed by: IGOR JOHNS on 04/04/21 1352 Fluticasone/Salmeterol (Advair 250-50 Diskus) 1 Each Blst.w.dev, 1 EACH IH BID, (Reported) Entered as Reported by: PAZ MACIEL on 01/13/21 1116 Fluticasone/Salmeterol (Advair 250-50 Diskus) 1 Each Blst.w.dev, 1 EACH IH BID Prescribed by: IGOR JOHNS on 04/04/21 1352 Hydrocodone/Acetaminophen (Hydrocodone-Acetamin 5-325 mg) 1 Each Tablet, 1 TAB PO DAILY, (Reported) Entered as Reported by: PAZ MACIEL on 01/13/21 1116 Hydrocodone/Acetaminophen (Hydrocodone-Acetamin 5-325 mg) 1 Each Tablet, 1 TAB PO Q4H PRN for PAIN-MODERATE (5-7) Prescribed by: JED ROQUE on 01/16/21 1341 Meloxicam (Meloxicam) 7.5 Mg Tablet, 7.5 MG PO BID, (Reported) Entered as Reported by: PAZ MACIEL on 01/13/21 1116 Nitrofurantoin Monohyd/M-Cryst (Macrobid 100 mg Capsule) 100 Mg Capsule, 1 TAB PO BID Prescribed by: AR HECK on 11/09/212125 Review of Systems Review of Systems Constitutional: see HPI, malaise, weakness Respiratory: see HPI, cough, dyspnea on exertion Cardiovascular: no symptoms reported, see HPI Gastrointestinal: no symptoms reported, see HPI; No constipation, No diarrhea, No nausea, No vomiting Genitourinary: no symptoms reported, see HPI Musculoskeletal: see HPI, joint pain (Right groin) Skin: no symptoms reported, see HPI All Other Systems Reviewed Negative Unless Noted: Yes Past Oreztcg-Tqxecm-Vludkt Hx Patient Social History Tobacco Use?: No Use of E-Cig and/or Vaping dev: No Substance use?: No Alcohol Use?: No Pt feels they are or have been: No Immunizations Up To Date Influenza Vaccine Up-to-Date: No; Not Current First/Initial COVID19 Vaccinat: PHIZER Second COVID19 Vaccination Pito: 02/03 Third COVID19 Vaccination Date: PHIZER Seasonal Allergies Seasonal Allergies: Yes Past Medical History Surgeries: Yes (cerclage, c/s x2, NOE FILTER,) Section, 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 Respiratory: Yes Asthma Currently Using CPAP: No Currently Using BIPAP: No Cardiac: Yes (BLOOD CLOTS) Neurological: No Reproductive Disorders: Yes (DUB, MENORRHAGIA) [employer] History: 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 Genitourinary: No Gastrointestinal: Yes Irritable Bowel Musculoskeletal: Yes Degenerate Disk Disease, Chronic Back Pain Endocrine: No HEENT: No Cancer: No Psychosocial: No Integumentary: No Blood Disorders: No Family Medical History Reviewed Nursing Family Hx Physical Exam Vital Signs - First Documented 11/09/21 11/09/21 18:10 19:24 Temp 36.7 Pulse 99 Resp 20 B/P (MAP) 96/62 (73) Pulse Ox 100 O2 Delivery Room Air Capillary Refill : Less Than 3 Seconds Height: 5'3" Weight: 373lbs. oz. 169.476280cn; 68.00 BMI Method:Stated General Appearance: WD/WN, mild distress HEENT: PERRL/EOMI, normal ENT inspection, TMs normal, pharynx normal Neck: non-tender, full range of motion, supple, normal inspection Respiratory: chest non-tender, lungs clear, normal breath sounds Cardiovascular: normal peripheral pulses, regular rate, rhythm Gastrointestinal: normal bowel sounds, non tender, soft, distended Extremities: no calf tenderness, normal capillary refill, other (Pedal pulses 2+ and symmetric, negative Homans. Limitation of motion to right hip secondary to groin pain. No skin erythema, or abscess noted.) Neurologic/Psychiatric: no motor/sensory deficits, alert, normal mood/affect, oriented x 3 Skin: normal color, warm/dry Progress/Results/Core Measures Suspected Sepsis SIRS Temperature: Pulse: 99 Respiratory Rate: 20 Laboratory Tests 11/09/21 18:30: White Blood Count 17.5H Blood Pressure 96 /62 Mean: 110 Laboratory Tests 11/09/21 18:30: Creatinine 1.39H, INR Comment 1.1, Platelet Count 165, Total Bilirubin 0.8 Results/Orders Lab Results Laboratory Tests Test 11/09/21 18:30 11/09/21 19:36 11/09/21 20:49 Range/Units White Blood Count 17.5 H 4.3-11.0 10^3/uL Red Blood Count 4.92 3.80-5.11 10^6/uL Hemoglobin 15.1 11.5-16.0 g/dL Hematocrit 46 35-52 % Mean Corpuscular Volume 94 80-99 fL Mean Corpuscular Hemoglobin 31 25-34 pg Mean Corpuscular Hemoglobin Concent 33 32-36 g/dL Red Cell Distribution Width 12.8 10.0-14.5 % Platelet Count 165 130-400 10^3/uL Mean Platelet Volume 11.4 9.0-12.2 fL Immature Granulocyte % (Auto) 1 % Neutrophils (%) (Auto) 73 42-75 % Lymphocytes (%) (Auto) 16 12-44 % Monocytes (%) (Auto) 8 0-12 % Eosinophils (%) (Auto) 2 0-10 % Basophils (%) (Auto) 0 0-10 % Neutrophils # (Auto) 12.8 H 1.8-7.8 10^3/uL Lymphocytes # (Auto) 2.8 1.0-4.0 10^3/uL Monocytes # (Auto) 1.3 H 0.0-1.0 10^3/uL Eosinophils # (Auto) 0.4 H 0.0-0.3 10^3/uL Basophils # (Auto) 0.1 0.0-0.1 10^3/uL Immature Granulocyte # (Auto) 0.2 H 0.0-0.1 10^3/uL Neutrophils % (Manual) 66 % Lymphocytes % (Manual) 18 % Monocytes % (Manual) 8 % Eosinophils % (Manual) 5 % Atypical Lymphocytes 3 % Blood Morphology Comment NORMAL Prothrombin Time 14.1 12.2-14.7 SEC INR Comment 1.1 0.8-1.4 Activated Partial Thromboplast Time 31 24-35 SEC D-Dimer > 20.00 H 0.00-0.49 UG/ML Sodium Level 136 135-145 MMOL/L Potassium Level 4.1 3.6-5.0 MMOL/L Chloride Level 98 98-107 MMOL/L Carbon Dioxide Level 19 L 21-32 MMOL/L Anion Gap 19 H 5-14 MMOL/L Blood Urea Nitrogen 20 H 7-18 MG/DL Creatinine 1.39 H 0.60-1.30 MG/DL Estimat Glomerular Filtration Rate 47 BUN/Creatinine Ratio 14 Glucose Level 145 H 70-105 MG/DL Calcium Level 9.4 8.5-10.1 MG/DL Corrected Calcium 9.2 8.5-10.1 MG/DL Total Bilirubin 0.8 0.1-1.0 MG/DL Aspartate Amino Transf (AST/SGOT) 20 5-34 U/L Alanine Aminotransferase (ALT/SGPT) 29 0-55 U/L Alkaline Phosphatase 94 40-136 U/L C-Reactive Protein High Sensitivity 3.49 H 0.00-0.50 MG/DL Total Protein 8.4 H 6.4-8.2 GM/DL Albumin 4.3 3.2-4.5 GM/DL Influenza Type A (RT-PCR) Not Detected Not Detecte Influenza Type B (RT-PCR) Not Detected Not Detecte Urine Color YELLOW Urine Clarity CLOUDY Urine pH 5.0 5-9 Urine Specific [place] >=1.030 1.016-1.022 Urine Protein 2+ H NEGATIVE Urine Glucose (UA) NEGATIVE NEGATIVE Urine Ketones TRACE H NEGATIVE Urine Nitrite NEGATIVE NEGATIVE Urine Bilirubin 1+ H NEGATIVE Urine Urobilinogen 1.0 < = 1.0 MG/DL Urine Leukocyte Esterase NEGATIVE NEGATIVE Urine RBC (Auto) NEGATIVE NEGATIVE Urine RBC 5-10 H /HPF Urine WBC 25-50 H /HPF Urine Squamous Epithelial Cells >50 H /HPF Urine Crystals NONE /LPF Urine Bacteria LARGE H /HPF Urine Casts PRESENT /LPF Urine Hyaline Casts >50 H /LPF Urine Mucus MODERATE H /LPF Urine Culture Indicated NO My Orders Orders - AR HECK Cbc With Automated Diff (11/09/21 19:31) Comprehensive Metabolic Panel (11/09/21 19:31) Hs C Reactive Protein (11/09/21 19:31) Fibrin Degradation Products (11/09/21 19:31) Protime With Inr (11/09/21 19:31) Partial Thromboplastin Time (11/09/21 19:31) Ua Culture If Indicated (11/09/21 19:31) Influenza A And B By Pcr (11/09/21 19:31) Ed Iv/Invasive Line Start (11/09/21 19:31) Ns Iv 1000 Ml (Sodium Chloride 0.9%) (11/09/21 19:45) Ibuprofen Tablet (Motrin Tablet) (11/09/21 19:33) Chest 1 View, Ap/Pa Only (11/09/21 19:34) Manual Differential (11/09/21 18:30) Enoxaparin Injection (Lovenox Injection) (11/09/21 21:00) Aspirin Tablet (Aspirin Tablet) (11/09/21 20:58) Enoxaparin Injection (Lovenox Injection) (11/09/21 21:08) Medications Given in ED Current Medications Medications Dose Ordered Sig/Armando Route Start Time Stop Time Status Last Admin Dose Admin Enoxaparin Sodium 160 mg ONCE ONCE SC 11/09/21 21:00 11/09/21 22:13 DC 11/09/21 21:14 160 MG Vital Signs/I&O 11/09/21 11/09/21 11/09/21 18:10 19:24 22:10 Temp 36.7 36.7 Pulse 99 104 99 Resp 20 20 B/P (MAP) 96/62 (73) 132/99 135/84 Pulse Ox 100 97 96 O2 Delivery Room Air Room Air Room Air Capillary Refill : Less Than 3 Seconds Blood Pressure Mean: 110 Progress Note : Time: 18:20 Progress Note Patient seen and evaluated, will obtain labs, chest x-ray and provide normal saline 1 L per IV. Patient encouraged to increase fluid intake. She refused to ambulate to bathroom due to right groin pain. 1929 Chest x-ray clear, no pneumonia. Awaiting urine sample. Patient taking sips of water, stressed importance to hydrate. SaO2 has remained 99% or greater. 1999 UA obtained, patient ambulated to bathroom with min assistance. Motrin 800 mg for generalized discomfort. With elevated D dimer and risk factors for DVT, discussed with Dr. Martinez, recommended coverage with Lovenox and outpatient US tomorrow. Start Aspirin daily. 2100 patient drinking water and sprite, reports improvement in symptoms. UTI noted. Discharge instructions and return precautions reviewed with her. Diagnostic Imaging Diagonstic Imaging: Xray Plain Films/CT/US/NM/MRI: chest Comments NAME: BRADEN HARE [facility] REC#: [id number] PT STATUS: REG ER : 1975 PHYSICIAN: AR HECK ADMIT DATE: 11/09/21/ER Draft Date of Exam:11/09/21 CHEST 1 VIEW, AP/PA ONLY INDICATION: COVID infection, shortness of breath. Frontal chest obtained at 08:05 p.m. and compared to 07/28/2011. Heart and mediastinal silhouette are normal in appearance. The lungs are clear. There is no pneumothorax or pleural fluid. IMPRESSION: Negative chest. Dictated on workstation # [id number] Dict: 11/09/212023 Trans: 11/09/212026 [facility] [id number] Interpreted by: LEVY YANEZ MD Electronically signed by: Reviewed: Reviewed by Me Departure Impression Primary Impression: COVID-19 Additional Impressions: Morbid obesity UTI (urinary tract infection) Qualified Codes: N30.01 - Acute cystitis with hematuria Disposition: HOME, SELF-CARE Condition: Stable Departure-Patient Inst. Decision time for Depature: 21:00 Referrals: KATHI ALVAREZ MD (PCP/Family) Primary Care Physician Patient Instructions: COVID-19 (DC), Deep Vein Thrombosis (DVT) ED, Urinary Tract Infection, Adult (DC) Add. Discharge Instructions: Take aspirin 325 mg daily. Alternate between Tylenol 650 mg and ibuprofen 800 mg every 4 hours for pain or discomfort. Increase water intake, 16 ounces every 2 hours while awake. You must get up and walk for 5 to 10 minutes every hour while awake. Use your albuterol 2 puffs every 4 hours for any shortness of breath. Call your primary care provider if your symptoms are not improving or worsen. Call [phone] first thing tomorrow morning to schedule your outpatient ultrasound. Continue all home meds. Return to the emergency department for new, urgent healthcare needs. All discharge instructions reviewed with patient and/or family. Voiced understanding. Scripts Nitrofurantoin Monohyd/M-Cryst (Macrobid 100 mg Capsule) 100 Mg Capsule 1 TAB PO BID, #14 CAP 0 Refills Prov: AR HECK 11/09/21 AR HECK Nov 09, 2021 20:37
[2021-11-09 20:49] LABS: ATYPICAL LYMPHOCYTES 3 %; EOSINOPHILS % (MANUAL) 5 %; LYMPHOCYTES % (MANUAL) 18 %; MONOCYTES % (MANUAL) 8 %; NEUTROPHILS % (MANUAL) 66 %; RBC MORPH NORMAL
[2021-11-09 20:54] LABS: CLARITY,URINE CLOUDY; COLOR,URINE YELLOW; GLUCOSE, URINE (UA) NEGATIVE (NEGATIVE); KETONES,URINE TRACE (NEGATIVE); LEUKOCYTE ESTERASE ,URINE NEGATIVE (NEGATIVE); NITRITE,URINE NEGATIVE (NEGATIVE); PROTEIN,URINE 2+ (NEGATIVE)
[2021-11-09] MEDS ORDERED: ASPIRIN 325 MG (5 GR) TABLET PO STA (20:58)
[2021-11-09] MEDS ORDERED: ENOXAPARIN 80 MG/0.8 ML (LOVENOX) SYR SC ONE (21:00)
[2021-11-09] MEDS ORDERED: ENOXAPARIN 80 MG/0.8 ML (LOVENOX) SYR ONE (21:08)
[2021-11-09 21:11] LABS: BACTERIA,URINE LARGE /HPF; HYALINE CASTS, URINE >50 /LPF; SQUAMOUS EPITHELIAL CELL,UR >50 /HPF; WBC,URINE 25-50 /HPF
[2021-11-09 21:13] LABS: BILIRUBIN,URINE 1+ (NEGATIVE)
[2021-11-09] MEDS ORDERED: NITR-65 PO (21:26)
[2021-11-09 22:10] VITALS: BP 135/84
== END 2021-11-09 22:13 | disposition home or self-care (01) ==
LOC: EDUNIT# 17:55 → ER 17:58
DX: U07.1 COVID-19 (principal); N39.0 Urinary tract infection, site not specified; E66.01 Morbid (severe) obesity due to excess calories; R79.1 Abnormal coagulation profile; J45.909 Unspecified asthma, uncomplicated; Z68.44 Body mass index [BMI] 60.0-69.9, adult; Z79.899 Other long term (current) drug therapy; Z73.0 Burn-out
CPT/HCPCS: 36415; 71045; 80053; 81000; 85007; 85027; 85379; 85610; 85730; 86141; 87636

== ENCOUNTER 2021-11-11 09:09 | Observation (INO) | payer OTHER ==
[~2021-11-11] VITALS: Ht 160 cm; Wt 158.3 kg
[~2021-11-11 09:09] MED LIST changes: -CELE100C PO; -LEVO25TA5 PO; -NAPR220C11 PO; -ONDA4TAB11 PO; -RIVA15TA2 PO; -RIVA20TA2 PO
[2021-11-11] MEDS ORDERED: LACTATED RINGERS 1,000 ML IV ONE (09:45)
[2021-11-11] MEDS ORDERED: PANTOPRAZOLE 40 MG (PROTONIX) VIAL IV ONE (09:45)
[2021-11-11] MEDS ORDERED: ONDANSETRON 4 MG/2 ML (SDV) Z0FRAN IVP ONE (09:45)
[2021-11-11 10:21] LABS: BASOPHILS % (AUTO) 0 % (0-10); EOSINOPHILS # (AUTO) 0.3 10^3/uL (0.0-0.3); EOSINOPHILS % (AUTO) 2 % (0-10); HEMATOCRIT 42 % (35-52); HEMOGLOBIN 14.2 g/dL (11.5-16.0); LYMPHOCYTES # (AUTO) 1.7 10^3/uL (1.0-4.0); LYMPHOCYTES % (AUTO) 12 % (12-44); MEAN CORPUSCULAR HEMOGLOBIN 31 pg (25-34); MEAN CORPUSCULAR HGB CONC 34 g/dL (32-36); MEAN CORPUSCULAR VOLUME 92 fL (80-99); MEAN PLATELET VOLUME 10.6 fL (9.0-12.2); MONOCYTES # (AUTO) 1.5 10^3/uL (0.0-1.0); MONOCYTES % (AUTO) 10 % (0-12); NEUTROPHILS # (AUTO) 11.2 10^3/uL (1.8-7.8); NEUTROPHILS % (AUTO) 75 % (42-75); PLATELET COUNT 162 10^3/uL (130-400); WHITE BLOOD COUNT 14.8 10^3/uL (4.3-11.0)
[2021-11-11 10:30] LABS: ALBUMIN 4.2 GM/DL (3.2-4.5); CHLORIDE 98 MMOL/L (98-107); POTASSIUM 3.6 MMOL/L (3.6-5.0); SODIUM 134 MMOL/L (135-145)
[2021-11-11 10:31] LABS: CALCIUM 9.4 MG/DL (8.5-10.1)
[2021-11-11 10:33] LABS: GLUCOSE 125 MG/DL (70-105); TOTAL PROTEIN 7.9 GM/DL (6.4-8.2)
[2021-11-11 10:34] LABS: BILIRUBIN,TOTAL 1.3 MG/DL (0.1-1.0); CARBON DIOXIDE 24 MMOL/L (21-32)
[2021-11-11 10:35] LABS: PROTHROMBIN TIME PATIENT 13.6 SEC (12.2-14.7)
[2021-11-11 10:36] LABS: ALKALINE PHOSPHATASE 84 U/L (40-136); CREATININE SERUM 1.34 MG/DL (0.60-1.30); GFR ESTIMATED 49
[2021-11-11 10:37] LABS: BUN/CREATININE RATIO 19
--- NOTE | 2021-11-11 10:37 | Diagnostic Imaging Report ---
INDICATION: Chest pain. TECHNIQUE/COMPARISON: A single AP view of the chest was obtained with comparison made to the study of 11/09/2021. FINDINGS: The heart size and pulmonary vascularity are within normal limits. The lungs are clear bilaterally. IMPRESSION: Unremarkable chest. Dictated by: Dictated on workstation # [id number]
[2021-11-11 10:39] LABS: ALANINE AMINOTRANSFERASE 21 U/L (0-55); MAGNESIUM 2.3 MG/DL (1.6-2.4)
[2021-11-11] MEDS ORDERED: APIXABAN 5 MG (ELIQUIS) TABLET PO ONE (10:45)
[2021-11-11 10:46] LABS: BAND NEUTROPHILS 1 %; BASOPHILS % (MANUAL) 0 %; EOSINOPHILS % (MANUAL) 2 %; LYMPHOCYTES % (MANUAL) 9 %; MONOCYTES % (MANUAL) 6 %; NEUTROPHILS % (MANUAL) 82 %; RBC MORPH NORMAL
--- NOTE | 2021-11-11 11:04 | ED General ---
General Chief Complaint: COVID19 Suspect/Confirmed Stated Complaint: COVID Nursing Triage Note: PT CHECKED IN TO ER AFTER HAVING OUTPATIENT US AND FOUND TO HAVE EXTENSIVE BILATERAL DVTS. Source of Information: Patient Exam Limitations: No Limitations History of Present Illness Date Seen by Provider: Nov 11, 2021 Time Seen by Provider: 09:20 Initial Comments This 46-year-old woman presents to the emergency room with prolonged and persist ent symptoms associated with COVID-19 infection diagnosed on November 01. She was seen in this ER on November 09 and was noted to have elevated D-dimer. She has history of DVT and has a IVC filter. Ultrasound was scheduled to evaluate the legs for DVT yesterday. Patient did not come in yesterday because she felt too ill and too weak to leave the home. She came in this morning and was diagnosed with bilateral extensive DVTs. She had previously been prescribed oral antiviral therapy for COVID-19 but could not tolerate it due to vomiting. She has had persistent problems with vomiting and states she is having a very hard time hydrating herself at home. She is also very weak and having trouble ambulating. She does have morbid obesity and is 176 kg. Currently her oxygen saturation is 100% and she is not in any respiratory distress. She does describe "heartburn" in the substernal region. Allergies and Home Medications Allergies Coded Allergies: ampicillin (Unverified Allergy, Mild, RASH, CHILLS, DIARRHEA, VOMITING, 03/20/13) meperidine HCl (Verified Allergy, Unknown, 12/21/14) Patient Home Medication List Home Medication List Reviewed: Yes Albuterol Sulfate (Proair Hfa) 1 Puff Puff, 2 PUFF IH Q6H PRN for WHEEZING, (Reported) Entered as Reported by: PAZ MACIEL on 01/13/21 1116 Albuterol Sulfate (Proair Hfa) 1 Puff Puff, 2 PUFF IH Q4H Prescribed by: IGOR JOHNS on 04/04/21 1352 Fluticasone/Salmeterol (Advair 250-50 Diskus) 1 Each Blst.w.dev, 1 EACH IH BID, (Reported) Entered as Reported by: PAZ MACIEL on 01/13/21 1116 Fluticasone/Salmeterol (Advair 250-50 Diskus) 1 Each Blst.w.dev, 1 EACH IH BID Prescribed by: IGOR JOHNS on 04/04/21 1352 Hydrocodone/Acetaminophen (Hydrocodone-Acetamin 5-325 mg) 1 Each Tablet, 1 TAB PO DAILY, (Reported) Entered as Reported by: PAZ MACIEL on 01/13/21 1116 Hydrocodone/Acetaminophen (Hydrocodone-Acetamin 5-325 mg) 1 Each Tablet, 1 TAB PO Q4H PRN for PAIN-MODERATE (5-7) Prescribed by: JED ROQUE on 01/16/21 1341 Meloxicam (Meloxicam) 7.5 Mg Tablet, 7.5 MG PO BID, (Reported) Entered as Reported by: PAZ MACIEL on 01/13/21 1116 Nitrofurantoin Monohyd/M-Cryst (Macrobid 100 mg Capsule) 100 Mg Capsule, 1 TAB PO BID Prescribed by: AR HECK on 11/09/212125 Review of Systems Review of Systems Constitutional: see HPI, weakness EENTM: no symptoms reported Respiratory: see HPI Cardiovascular: see HPI Gastrointestinal: see HPI Genitourinary: no symptoms reported : No Musculoskeletal: no symptoms reported Skin: no symptoms reported Psychiatric/Neurological: No Symptoms Reported Hematologic/Lymphatic: No Symptoms Reported Past Jqzgwuu-Fudmmb-Mdudrc Hx Patient Social History Tobacco Use?: No Use of E-Cig and/or Vaping dev: No Substance use?: No Alcohol Use?: No Pt feels they are or have been: No Immunizations Up To Date First/Initial COVID19 Vaccinat: PHIZER Second COVID19 Vaccination Pito: 02/03 Third COVID19 Vaccination Date: RANJANA Seasonal Allergies Seasonal Allergies: Yes Past Medical History Surgeries: Yes (cerclage, c/s x2, NOE FILTER,) Section, 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, Vascular Surgery (IVC filter) Respiratory: Yes Asthma Currently Using CPAP: No Currently Using BIPAP: No Cardiac: Yes (BLOOD CLOTS) Deep Vein Thrombosis Neurological: No Reproductive Disorders: Yes (DUB, MENORRHAGIA) 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 oz. [id number]; 68.00 BMI Method:Stated General Appearance: No Apparent Distress, WD/WN, Obese HEENT: PERRL/EOMI, Normal ENT Inspection Neck: Normal Inspection; No JVD Respiratory: Lungs Clear, Normal Breath Sounds, No Accessory Muscle Use Cardiovascular: Regular Rate, Rhythm, No Edema, No Murmur Gastrointestinal: Normal Bowel Sounds, Soft; No Distended; Tenderness (Mild, generalized) Extremity: Other (Body habitus obscures evaluation of edema. There does appear to be some edema bilaterally. Lower extremities are not particularly tender. Capillary refill 5 seconds or less.) Neurologic/Psychiatric: Alert, Oriented x3, No Motor/Sensory Deficits, Normal Mood/Affect Skin: Normal Color, Warm/Dry Progress/Results/Core Measures Suspected Sepsis SIRS Temperature: Pulse: 92 Respiratory Rate: 16 Laboratory Tests 11/11/21 10:12: White Blood Count 14.8H Blood Pressure 115 /101 Mean: 106 Laboratory Tests 11/11/21 10:12: Creatinine 1.34H, INR Comment 1.0, Platelet Count 162, Total Bilirubin 1.3H Results/Orders Lab Results Laboratory Tests Test 11/11/21 10:00 11/11/21 10:12 Range/Units C-Reactive Protein High Sensitivity 9.30 H 0.00-0.50 MG/DL Procalcitonin 0.10 H <0.10 NG/ML White Blood Count 14.8 H 4.3-11.0 10^3/uL Red Blood Count 4.60 3.80-5.11 10^6/uL Hemoglobin 14.2 11.5-16.0 g/dL Hematocrit 42 35-52 % Mean Corpuscular Volume 92 80-99 fL Mean Corpuscular Hemoglobin 31 25-34 pg Mean Corpuscular Hemoglobin Concent 34 32-36 g/dL Red Cell Distribution Width 12.7 10.0-14.5 % Platelet Count 162 130-400 10^3/uL Mean Platelet Volume 10.6 9.0-12.2 fL Immature Granulocyte % (Auto) 1 % Neutrophils (%) (Auto) 75 42-75 % Lymphocytes (%) (Auto) 12 12-44 % Monocytes (%) (Auto) 10 0-12 % Eosinophils (%) (Auto) 2 0-10 % Basophils (%) (Auto) 0 0-10 % Neutrophils # (Auto) 11.2 H 1.8-7.8 10^3/uL Lymphocytes # (Auto) 1.7 1.0-4.0 10^3/uL Monocytes # (Auto) 1.5 H 0.0-1.0 10^3/uL Eosinophils # (Auto) 0.3 0.0-0.3 10^3/uL Basophils # (Auto) 0.0 0.0-0.1 10^3/uL Immature Granulocyte # (Auto) 0.1 0.0-0.1 10^3/uL Neutrophils % (Manual) 82 % Lymphocytes % (Manual) 9 % Monocytes % (Manual) 6 % Eosinophils % (Manual) 2 % Basophils % (Manual) 0 % Metamyelocytes % % Band Neutrophils 1 % Blood Morphology Comment NORMAL Prothrombin Time 13.6 12.2-14.7 SEC INR Comment 1.0 0.8-1.4 Activated Partial Thromboplast Time 28 24-35 SEC Sodium Level 134 L 135-145 MMOL/L Potassium Level 3.6 3.6-5.0 MMOL/L Chloride Level 98 98-107 MMOL/L Carbon Dioxide Level 24 21-32 MMOL/L Anion Gap 12 5-14 MMOL/L Blood Urea Nitrogen 25 H 7-18 MG/DL Creatinine 1.34 H 0.60-1.30 MG/DL Estimat Glomerular Filtration Rate 49 BUN/Creatinine Ratio 19 Glucose Level 125 H 70-105 MG/DL Calcium Level 9.4 8.5-10.1 MG/DL Corrected Calcium 9.2 8.5-10.1 MG/DL Magnesium Level 2.3 1.6-2.4 MG/DL Total Bilirubin 1.3 H 0.1-1.0 MG/DL Aspartate Amino Transf (AST/SGOT) 17 5-34 U/L Alanine Aminotransferase (ALT/SGPT) 21 0-55 U/L Alkaline Phosphatase 84 40-136 U/L Myoglobin 258.9 H 10.0-92.0 NG/ML Troponin I < 0.028 <0.028 NG/ML Total Protein 7.9 6.4-8.2 GM/DL Albumin 4.2 3.2-4.5 GM/DL My Orders Orders - STUART VILLALTA MD Cbc With Automated Diff (11/11/21 09:37) Comprehensive Metabolic Panel (11/11/21 09:37) Magnesium (11/11/21 09:37) Ed Iv/Invasive Line Start (11/11/21 09:37) Lactated Ringers (Lr 1000 Ml Iv Solution (11/11/21 09:45) Ondansetron Injection (Zofran Injectio (11/11/21 09:45) Chest 1 View, Ap/Pa Only (11/11/21 09:42) Ekg Tracing (11/11/21 09:42) Myoglobin Serum (11/11/21 09:42) Protime With Inr (11/11/21 09:42) Partial Thromboplastin Time (11/11/21 09:42) O2 (11/11/21 09:42) Monitor-Rhythm Ecg Trace Only (11/11/21 09:42) Lipid Panel (11/12/21 06:00) Troponin I Gosper (11/11/21 09:42) Pantoprazole Injection (Protonix Injecti (11/11/21 09:45) Manual Differential (11/11/21 10:12) Hs C Reactive Protein (11/11/21 10:34) Procalcitonin (Pct) (11/11/21 10:34) Enoxaparin Injection (Lovenox Injection) (11/11/21 11:45) Enoxaparin Injection (Lovenox Injection) (11/11/21 11:45) Medications Given in ED Current Medications Medications Dose Ordered Sig/Armando Route Start Time Stop Time Status Last Admin Dose Admin Lactated Ringer's 1,000 ml @ 0 mls/hr Q0M ONCE IV 11/11/21 09:45 11/11/21 09:46 DC 11/11/21 10:17 0 MLS/HR Ondansetron HCl 8 mg ONCE ONCE IVP 11/11/21 09:45 11/11/21 09:46 DC 11/11/21 10:17 8 MG Pantoprazole 40 mg ONCE ONCE IV 11/11/21 09:45 11/11/21 09:46 DC 11/11/21 10:17 40 MG Vital Signs/I&O 11/11/21 09:20 Pulse 92 Resp 16 B/P (MAP) 115/101 (106) Pulse Ox 99 O2 Delivery Room Air Capillary Refill : Blood Pressure Mean: 106 Progress Note : Time: 11:41 Progress Note Patient is being treated with Lovenox for her DVT. Oral therapy is not being used yet because of her nausea and vomiting. I discussed the case with Dr. Ruiz who is agreeable to admission. Patient was specifically requesting admission because she is not functioning well at home. She has difficulty ambulating and remaining hydrated. She is not particularly short of breath at rest but gets very short of breath with exertion. Oxygen saturation has been in the high 90s to 100% on room air. I did discuss the extensive DVTs with Dr. Lauren. He did not believe this patient is a candidate for thrombectomy procedures because she already has a IVC filter in place. Patient desires full CODE STATUS. ECG Initial ECG Impression Date: Nov 11, 2021 Initial ECG Impression Time: 09:55 Initial ECG Rate: 90 Initial ECG Rhythm: Normal Sinus Comment Normal sinus rhythm with no ST elevation or depression. No abnormal intervals or axis deviation. Diagnostic Imaging Diagonstic Imaging: Xray Plain Films/CT/US/NM/MRI: chest Comments [facility] REC#: [id number] PT STATUS: REG ER : 1975 PHYSICIAN: STUART VILLALTA MD ADMIT DATE: 11/11/21/ER Draft Date of Exam:11/11/21 CHEST 1 VIEW, AP/PA ONLY INDICATION: Chest pain. TECHNIQUE/COMPARISON: A single AP view of the chest was obtained with comparison made to the study of 11/09/2021. FINDINGS: The heart size and pulmonary vascularity are within normal limits. The lungs are clear bilaterally. IMPRESSION: Unremarkable chest. Dictated on workstation # [id number] Dict: 11/11/21 1035 Trans: 11/11/21 1037 [id number] Interpreted by: JARRETT SCANLON MD Diagonstic Imaging: Ultrasound Plain Films/CT/US/NM/MRI: leg Comments NAME: [facility] REC#: [id number] PT STATUS: REG CLI : 1975 PHYSICIAN: AR HECK ADMIT DATE: 11/11/21/RAD Draft Date of Exam:11/11/21 US VENOUS LOWER EXT RED PROCEDURE: US Venous Lower Ext Red. TECHNIQUE: Multiple Real-time grayscale images were obtained over the lower extremities in various projections, bilaterally. Additional duplex Doppler and color Doppler images were also obtained. INDICATION: Elevated D-dimer with bilateral leg pain. FINDINGS: Extensive thrombus is seen throughout the bilateral lower extremity deep venous systems. Thrombus is seen extending from the common femoral veins as well as superficial and popliteal veins. There is thrombus extending into the calf veins bilaterally. IMPRESSION: Extensive bilateral lower extremity DVT. Dictated on workstation # [id number] Dict: 11/11/21919 Trans: 11/11/21928 [id number] Interpreted by: NO TAPIA MD Departure Communication (Admissions) Time/Spoke to Admitting Phy: 11:30 Dr. Ruiz Impression Primary Impression: COVID-19 Additional Impressions: Nausea vomiting and diarrhea DVT, bilateral lower limbs Qualified Codes: I82.413 - Acute embolism and thrombosis of femoral vein, bilateral Morbid obesity Generalized weakness Debility Disposition: ADMITTED INPATIENT Condition: Stable Admissions Decision to Admit Reason: Admit from ER (General) Decision to Admit/Date: Nov 11, 2021 Time/Decision to Admit Time: 11:30 Departure-Patient Inst. Referrals: KATHI ALVAREZ MD (PCP/Family) Primary Care Physician STUART VILLALTA MD Nov 11, 2021 11:04
[2021-11-11] MEDS ORDERED: ENOXAPARIN 100 MG/1 ML (LOVENOX) SYR SC ONE (11:45)
[2021-11-11] MEDS ORDERED: ENOXAPARIN 80 MG/0.8 ML (LOVENOX) SYR SC ONE (11:45)
[2021-11-11] MEDS ORDERED: LACTULOSE SYRUP 10GM/15ML (ENULOSE) 30ML UDC PO PRN (13:00)
[2021-11-11] MEDS ORDERED: diphenhydrAMINE 25 MG TAB (BENADRYL) PO PRN (13:00)
[2021-11-11] MEDS ORDERED: diphenhydrAMINE 50 MG/ML INJ (BENADRYL) IVP PRN (13:00)
[2021-11-11] MEDS ORDERED: MILK OF MAGNESIA 400 MG/5 ML 30 ML UDC PO PRN (13:00)
[2021-11-11] MEDS ORDERED: ENOXAPARIN 80 MG/0.8 ML (LOVENOX) SYR SC SCH (13:00)
[2021-11-11] MEDS ORDERED: morphine INJ 4 MG/ML 1 ML (VIAL/SYRINGE) IV PRN (13:00)
[2021-11-11] MEDS ORDERED: ONDANSETRON 4 MG/2 ML (SDV) Z0FRAN IV PRN (13:00)
[2021-11-11] MEDS ORDERED: polyethylene glycoL POWDER 17 GM (MIRALAX) PACK PO PRN (13:00)
[2021-11-11] MEDS ORDERED: BISACODYL 10 MG SUPP (DULCOLAX) PR PRN (13:00)
[2021-11-11] MEDS ORDERED: ACETAMINOPHEN 325 MG TABLET PO PRN (13:00)
[2021-11-11] MEDS ORDERED: ONDANSETRON 4 MG (ZOFRAN) ORAL DISSOLVE TAB PO PRN (13:00)
[2021-11-11] MEDS ORDERED: MELATONIN 3 MG TABLET PO PRN (13:00)
[2021-11-11] MEDS ORDERED: ANTACID SUSP 30 ML UDC (MYLANTA) PO PRN (13:00)
[2021-11-11 13:17] VITALS: BP 137/91
[2021-11-11] MEDS ORDERED: RT-ALBUTEROL SULF 2.5 MG/3 ML PRE-MIX VIAL INH PRN (13:30)
[2021-11-11] MEDS: NS IV 1000 ML 1,000 ML IV SCH ×3 (14:04→21:46)
[2021-11-11] MEDS: CALCIUM CARBONATE 500 MG (TUMS) TAB.CHEW PO PRN (14:07)
--- NOTE | 2021-11-11 14:12 | Occ Therapy Progress Note ---
Therapy Progress Note OT orders received and chart reviewed. Pt on hold per nursing due to extensive DVTs bilaterally, nurse states pt should not overdo it, and pt refusing to get OOB on this date due to fatigue. OT will attempt evaluation tomorrow. STEPHANIE VIDAL OT Nov 11, 2021 14:12
--- NOTE | 2021-11-11 14:16 | Physical Therapy Progress Note ---
Therapy Progress Note Order for PT suzanne received. Nurse states that patient is currently in pain and refuses to get out of bed to commode or really even move much. He recommends trying in the morning once she gets settled and has better pain control. Will check back tomorrow. KEARA BETANCOURT PT Nov 11, 2021 14:16
[2021-11-11 16:00] VITALS: BP 121/80
[2021-11-11 19:46] VITALS: BP 112/75
[2021-11-11] MEDS: DOCUSATE SODIUM 100 MG (COLACE) CAP PO SCH (20:18)
[2021-11-11] MEDS: SENNOSIDES 8.6 MG (SENOKOT) TAB PO SCH (20:18)
[2021-11-11] MEDS: ENOXAPARIN 300 MG/3 ML (LOVENOX) MULTI-DOSE VIAL SQ SCH (23:24)
[2021-11-11 23:25] VITALS: BP 119/74
[2021-11-12 04:08] VITALS: BP 116/72
[2021-11-12] MEDS: NS IV 1000 ML 1,000 ML IV SCH (05:59)
--- NOTE | 2021-11-12 06:00 | History & Physical-Hospitalist ---
History of Present Illness HPI/Chief Complaint CC: Weakness HPI: This is a 46 yr old morbidly obese female. BMI is 68. She presented following 10 days after Covid. She was found to be very weak. She required a elizabeth catheter and IV fluid. Overall she is still very weak and may very well need in-patient rehab or assisted. Labs reviewed all were stable. Source: patient Exam Limitations: no limitations Date Seen 11/12/21 Time Seen by a Provider: 11:00 Attending Physician Isaura Deluca MD PCP Admitting Physician: Benita Ruiz DO Attending Physician: Benita Ruiz DO Referring Physician Date of Admission Nov 11, 2021 at 11:36 Home Medications & Allergies Home Medications Reviewed patient Home Medication Reconciliation performed by pharmacy medication reconciliations bioprocessing manufacturing technician and/or nursing. Patients Allergies have been reviewed. Allergies Allergies Coded Allergies ampicillin (Unverified Allergy, Mild, RASH, CHILLS, DIARRHEA, VOMITING, 03/20/13) meperidine HCl (Verified Allergy, Unknown, 12/21/14) Past Fngwkaj-Wjjdrh-Lhsxqk Hx Patient Social History Marrital Status: single Employed/Student: unemployed Tobacco Use?: No Smoking Status: Never a Smoker Use of E-Cig and/or Vaping dev: No Substance use?: No Alcohol Use?: No Pt feels they are or have been: No Immunizations Up To Date First/Initial COVID19 Vaccinat: PHIZER Second COVID19 Vaccination Pito: 02/03 Tetanus Booster (TDap): Unknown Seasonal Allergies Seasonal Allergies: Yes Current Status status: No status: No Advance Directives: No Communicates: Verbally Primary Language: Gibraltarian Preferred Spoken Language: Gibraltarian Is interpretation needed?: No Sensory deficits: Vision impairment Implanted or Applied Medical D: Other Past Medical History Surgeries: Section, 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, Vascular Surgery (IVC filter) Asthma Currently Using CPAP: No Currently Using BIPAP: No 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 oz. 169.496379kj; 61.83 BMI Method:Stated General Appearance: No Apparent Distress, Chronically ill, Obese Eyes: Right Eye Normal Inspection, Right Eye PERRL HEENT: PERRL/EOMI, Normal ENT Inspection, Pharynx Normal, Moist Mucous Membranes Neck: Full Range of Motion, Normal Inspection, Non Tender Respiratory: Chest Non Tender, Lungs Clear, Normal Breath Sounds, No Accessory Muscle Use, No Respiratory Distress Cardiovascular: Regular Rate, Rhythm, No Edema, No Gallop, No JVD, No Murmur, Normal Peripheral Pulses Gastrointestinal: Normal Bowel Sounds, No Organomegaly, No Pulsatile Mass, Non Tender, Soft Back: Normal Inspection, No CVA Tenderness, No Vertebral Tenderness Extremity: Normal Capillary Refill, Normal Inspection, Normal Range of Motion, Non Tender, No Calf Tenderness, No Pedal Edema Neurologic/Psychiatric: Alert, Oriented x3, No Motor/Sensory Deficits, Normal Mood/Affect, clinical nurse manager II-XII Norm as Tested Skin: Normal Color, Warm/Dry Lymphatic: No Adenopathy Results Results/Procedures Labs Laboratory Tests 11/11/21 10:12 11/12/21 06:22 Patient resulted labs reviewed. Assessment/Plan Admission Diagnosis Assessment: Weakness Dehydration Hypothyroidism Asthma N/V Morbid obesity OA Plan: Monitor closely HLIVF PT OT Admission Status: Observation Diagnosis/Problems Diagnosis/Problems (1) Morbid obesity Status: Acute (2) Nausea vomiting and diarrhea Status: Acute (3) Generalized weakness Status: Acute (4) Debility Status: Acute Clinical Quality Measures DVT/VTE Risk/Contraindication: Contraindications-Mechi: Other *list below* Other: dvt BENITA RUIZ DO Nov 12, 2021 06:00
[2021-11-12 06:33] LABS: BASOPHILS # (AUTO) 0.1 10^3/uL (0.0-0.1); BASOPHILS % (AUTO) 1 % (0-10); EOSINOPHILS # (AUTO) 0.5 10^3/uL (0.0-0.3); EOSINOPHILS % (AUTO) 4 % (0-10); HEMATOCRIT 41 % (35-52); HEMOGLOBIN 13.5 g/dL (11.5-16.0); LYMPHOCYTES # (AUTO) 2.3 10^3/uL (1.0-4.0); LYMPHOCYTES % (AUTO) 19 % (12-44); MEAN CORPUSCULAR HEMOGLOBIN 31 pg (25-34); MEAN CORPUSCULAR HGB CONC 33 g/dL (32-36); MEAN CORPUSCULAR VOLUME 93 fL (80-99); MEAN PLATELET VOLUME 10.4 fL (9.0-12.2); MONOCYTES # (AUTO) 1.4 10^3/uL (0.0-1.0); MONOCYTES % (AUTO) 11 % (0-12); NEUTROPHILS # (AUTO) 7.9 10^3/uL (1.8-7.8); NEUTROPHILS % (AUTO) 65 % (42-75); PLATELET COUNT 180 10^3/uL (130-400); WHITE BLOOD COUNT 12.3 10^3/uL (4.3-11.0)
[2021-11-12 07:10] LABS: ALBUMIN 3.8 GM/DL (3.2-4.5); BILIRUBIN,TOTAL 1.1 MG/DL (0.1-1.0); CREATININE SERUM 1.28 MG/DL (0.60-1.30); POTASSIUM 3.8 MMOL/L (3.6-5.0); TOTAL PROTEIN 7.4 GM/DL (6.4-8.2)
[2021-11-12 08:08] VITALS: BP 121/76
[2021-11-12] MEDS: DOCUSATE SODIUM 100 MG (COLACE) CAP PO SCH ×2 (08:32→19:23)
[2021-11-12] MEDS: SENNOSIDES 8.6 MG (SENOKOT) TAB PO SCH ×2 (08:32→19:24)
[2021-11-12] MEDS ORDERED: ACHD5005 PO (11:01)
[2021-11-12] MEDS ORDERED: CELE100C PO (11:01)
[2021-11-12] MEDS ORDERED: FLUT1DIS26 IH (11:01)
[2021-11-12] MEDS ORDERED: NAPR220C11 PO (11:01)
[2021-11-12] MEDS ORDERED: LEVO25TA5 PO (11:01)
[2021-11-12] MEDS: ENOXAPARIN 300 MG/3 ML (LOVENOX) MULTI-DOSE VIAL SQ SCH (11:13)
[2021-11-12 11:23] VITALS: BP 118/80
--- NOTE | 2021-11-12 11:35 | Physical Therapy Evaluation ---
PT Evaluation-General Medical Diagnosis Admission Date Nov 11, 2021 at 11:36 Medical Diagnosis: Covid Onset Date: Nov 01, 2021 Therapy Diagnosis Therapy Diagnosis: debility Height/Weight Height (Feet): 5 Height (Inches): 3 Weight (Pounds): 373 Precautions Precautions/Isolations: Contact Isolation, Droplet Isolation, Fall Prevention Referral Physician: Sara Reason for Referral: Evaluation/Treatment Medical History Additional Medical History morbid obesity Current History ER secondary to extensive bilateral LE DVT's Reviewed History: Yes Social History Home: Single Level Current Living Status: Spouse Prior Prior Level of Function SCALE: Activities may be completed with or without assistive devices. 8-Xjcirahhzn-twocpwa completes the activity by him/herself with no assistance from a helper. 5-Set-up or Clean-up Assistance-helper sets up or cleans up; patient completes activity. Florence assists only prior to or following the activity. 4-Supervision or Touching Assistance-helper provides verbal cues and/or touching/steadying and/or contact guard assistance as patient completes activity. Assistance may be provided throughout the activity or intermittently. 3-Partial/Moderate Assistance-helper does LESS THAN HALF the effort. Florence lifts, holds or supports trunk or limbs, but provides less than half the effort. 2-Substantial/Maximal Assistance-helper does MORE THAN HALF the effort. Florence lifts or holds trunk or limbs and provides more than half the effort. 9-Wsgoyjlpi-ebcwxq does ALL the effort. Patient does none of the effort to complete the activity. Or, the assistance of 2 or more helpers is required for the patient to complete the activity. If activity was not attempted, code reason: 7-Patient Refused. 9-Not Applicable-not attempted and the patient did not perform the activity before the current illness, exacerbation or injury. 10-Not Attempted due to Environmental Limitations-(lack of equipment, weather restraints, etc.). 88-Not Attempted due to Medical Conditions or Safety Concerns. Bed Mobility: 6 Transfers (B,C,W/C): 6 Gait: 6 Indoor Mobility (Ambulation): Independent Prior Devices Use: None PT Evaluation-Current Subjective Patient agrees to PT. Objective Patient Orientation: Normal For Age Attachments: Jaimes Catheter, IV ROM/Strength ROM Lower Extremities bilateral LE WFL Strength Lower Extremities 4/5 grossly bilateral LE Integumentary/Posture Bowel Incontinence: No Bladder Incontinence: Jaimes Cath Posture WFL Neuromuscular (Tone, Coordination, Reflexes) grossly intact Sensory Vision: Wears Glasses Hearing: Functional Transfers Lying to Sitting/Side of Bed(Q: 6 Sit to Stand (QC): 6 Chair/Pyw-ve-Rxffx Xfer(QC): 6 Gait Does the Patient Walk?: Yes Mode of Locomotion: Both Walk 10 feet (QC): 6 Walk 50 ft with 2 Turns(QC): 6 Gait Assistive Device: FWW Comments/Gait Description FWW for initial assessment Balance Sitting Static: Normal Sitting Dynamic: Normal Standing Static: Normal Standing Dynamic: Normal Assessment/Needs Patient is currently at independent [facility] with all gross motor skills and does not require skilled PT intervention. Rehab Potential: Fair PT Plan Treatment/Plan Treatment Plan: Discontinue PT, goals met Treatment Duration: Nov 12, 2021 Frequency: 1 time per week Estimated Hrs Per Day: .25 hour per day Patient and/or Family Agrees t: Yes Discharge Recommendations Therapy Discharge Recommendati: Home & Family Time/GCodes Time In: 1100 Time Out: 1111 Total Billed Treatment Time: 11 Total Billed Treatment 1 visit EVModC 11 min CHIQUI SILVA PT Nov 12, 2021 11:35
--- NOTE | 2021-11-12 12:51 | Occupational Therapy Eval ---
OT Evaluation-General/PLF Medical Diagnosis Admission Date Nov 11, 2021 at 11:36 Medical Diagnosis: Covid Onset Date: Nov 01, 2021 Therapy Diagnosis Therapy Diagnosis: weakness Height/Weight Height (Feet): 5 Height (Inches): 3 Weight (Pounds): 373 Precautions Precautions/Isolations: Contact Isolation, Droplet Isolation, Fall Prevention Referral Physician: Sara Referral Reason: Evaluation/Treatment Medical History Additional Medical History DVT, asthma, DDD, chronic back pain, irritable bowel Current History ED with prolonged and persistent COVID symptoms, November 01 onset. Weakness and trouble ambulating d/t extensive bilateral DVTs Social History Home: Single Level Current Living Status: Spouse ADL-Prior Level of Function SCALE: Activities may be completed with or without assistive devices. 7-Xqjrzdapok-mtbazwu completes the activity by him/herself with no assistance from a helper. 5-Set-up or Clean-up Assistance-helper sets up or cleans up; patient completes activity. [place] assists only prior to or following the activity. 4-Supervision or Touching Assistance-helper provides verbal cues and/or touching/steadying and/or contact guard assistance as patient completes activity. Assistance may be provided throughout the activity or intermittently. 3-Partial/Moderate Assistance-helper does LESS THAN HALF the effort. [place] lifts, holds or supports trunk or limbs, but provides less than half the effort. 2-Substantial/Maximal Assistance-helper does MORE THAN HALF the effort. [place] lifts or holds trunk or limbs and provides more than half the effort. 7-Unwdjhrjv-nowtei does ALL the effort. Patient does none of the effort to complete the activity. Or, the assistance of 2 or more helpers is required for the patient to complete the activity. If activity was not attempted, code reason: 7-Patient Refused. 9-Not Applicable-not attempted and the patient did not perform the activity before the current illness, exacerbation or injury. 10-Not Attempted due to Environmental Limitations-(lack of equipment, weather restraints, etc.). 88-Not Attempted due to Medical Conditions or Safety Concerns. ADL PLOF Comments Pt reports being independent with ADLs and functional mobility, no AD. She has a large walk in shower with a bench,. Self Care: Independent Functional Cognition: Independent DME/Equipment: Bath Bench, Shower OT Current Status Subjective Pt in recliner, c/o being uncomfortable. OT assisted pt with repositioning to comfort. Mental Status/Objective Patient Orientation: Person, Place, Situation Current Upper Extremity ROM WFL Upper Extremity Strength grossly 3+/5 ADL-Treatment Eating (QC): 6 On/Off Footwear (QC): 7 Toileting Hygiene (QC): 7 Other Treatments Pt in recliner, agreeable to OT tx. Pt c/o being uncomfortable, OT assisted pt with positioning to comfort and providing education on working the recliner. Pt declined ADLs/functional mobility. OT educated pt on energy conservation techniques and ADL modifications for home, she verbalized understanding. In order to increase pulmonary function, UE strength and activity tolerance, OT ed ucated pt on UE exercises for shoulder flexion, front punch, elbow flexion/extension, and finger flexion/extension. Pt verbalized understanding, but declined completing exercises at this time. Post tx, pt in recliner, call light in reach and all needs met. Education OT Patient Education: Correct positioning, Energy conservation, Modified ADL techniques, Progress toward Goal/Update tx plan, Purpose of tx/functional activities, Rehab process Teaching Recipient: Patient Teaching Methods: Discussion Response to Teaching: Reinforcement Needed OT Alf Goals Court Clerk Goals Time Frame: Nov 13, 2021 Eating (QC): 6 Oral Hygiene (QC): 5 Toileting Hygiene (QC): 4 Shower/Bathe Self (QC): 4 Upper Body Dressing (QC): 5 Lower Body Dressing (QC): 4 On/Off Footwear (QC): 4 Additional Goals: 1-Demonstrate ADL Tasks, 2-Verbalize Understanding, 3- ImproveStrength/Becki 1=Demonstrate adherence to instructed precautions during ADL tasks. 2=Patient will verbalize/demonstrate understanding of assistive devices/modifications for ADL. 3=Patient will improve strength/tolerance for activity to enable patient to perform ADL's. OT Education/Plan Problem List/Assessment Assessment: Decreased Activ Tolerance, Decreased UE Strength, Impaired I ADL's, Impaired Self-Care Skills Pt would benefit from skilled OT services in order to increase BUE strength and activity tolerance, and increase independence with ADLs to maximize LOF for safe return home. Discharge Recommendations Plan/Recommendations: Continue POC Treatment Plan/Plan of Care Patient would benefit from OT for education, treatment and training to promote independence in ADL's, mobility, safety and/or upper extremity function for ADL's. Plan of Care: ADL Retraining, Functional Mobility, UE Funct Exercise/Act Treatment Duration: Nov 13, 2021 Frequency: 3 times per week (3-5 times per week) Estimated Hrs Per Day: .25 hour per day Rehab Potential: Fair Time/GCodes Start Time: 11:49 Stop Time: 12:08 Total Time Billed (hr/min): 19 Billed Treatment Time 1, STEPHANIE AMBRIZ OT Nov 12, 2021 12:51
[2021-11-12 15:53] VITALS: BP 125/76
[2021-11-12] MEDS: RIVAROXABAN 15 MG TABLET (XARELTO) PO SCH (17:52)
[2021-11-12] MEDS: CALCIUM CARBONATE 500 MG (TUMS) TAB.CHEW PO PRN (19:21)
[2021-11-12 19:41] VITALS: BP 121/65
[2021-11-12] MEDS ORDERED: HYDROcodone/APAP 5 MG/325 MG (LORTAB) TAB PO PRN (20:45)
[2021-11-12] MEDS ORDERED: PROMETHAZINE INJ 25 MG/ML (PHENERGAN) AMP IM PRN (21:45)
[2021-11-12] MEDS ORDERED: METOCLOPRAMIDE INJ 10 MG/2 ML (REGLAN) IVP PRN (21:45)
[2021-11-12] MEDS ORDERED: PROCHLORPERAZINE 25 MG (COMPAZINE) SUPP PR PRN (21:45)
[2021-11-12] MEDS ORDERED: RT--FLUTICASONE/SALMETEROL 113-14 (AIRDUO RespiCLICK) IH PRN (22:30)
[2021-11-12 23:56] VITALS: BP 118/81
[2021-11-13 04:26] VITALS: BP 115/76
[2021-11-13 06:02] LABS: BASOPHILS # (AUTO) 0.1 10^3/uL (0.0-0.1); BASOPHILS % (AUTO) 1 % (0-10); EOSINOPHILS # (AUTO) 0.4 10^3/uL (0.0-0.3); EOSINOPHILS % (AUTO) 3 % (0-10); HEMATOCRIT 39 % (35-52); HEMOGLOBIN 12.5 g/dL (11.5-16.0); LYMPHOCYTES # (AUTO) 2.7 10^3/uL (1.0-4.0); LYMPHOCYTES % (AUTO) 20 % (12-44); MEAN CORPUSCULAR HEMOGLOBIN 31 pg (25-34); MEAN CORPUSCULAR HGB CONC 33 g/dL (32-36); MEAN CORPUSCULAR VOLUME 94 fL (80-99); MEAN PLATELET VOLUME 10.6 fL (9.0-12.2); MONOCYTES # (AUTO) 1.4 10^3/uL (0.0-1.0); MONOCYTES % (AUTO) 10 % (0-12); NEUTROPHILS # (AUTO) 8.9 10^3/uL (1.8-7.8); NEUTROPHILS % (AUTO) 66 % (42-75); PLATELET COUNT 213 10^3/uL (130-400); WHITE BLOOD COUNT 13.6 10^3/uL (4.3-11.0)
--- NOTE | 2021-11-13 06:07 | Progress Note - Hospitalist ---
Subjective HPI/CC On Admission Date Seen by Provider: Nov 13, 2021 Time Seen by Provider: 11:00 CC: Weakness HPI: This is a 46 yr old morbidly obese female. BMI is 68. She presented following 10 days after Covid. She was found to be very weak. She required a elizabeth catheter and IV fluid. Overall she is still very weak and may very well need in-patient rehab or halfway. Labs reviewed all were stable. Subjective/Events-last exam Pt had vomiting last night NG tube contemplated Dr. Packer will see her in consult Acute abdominal series shows evidence of ileus Review of Systems General: Fatigue, Malaise Gastrointestinal: Nausea, Vomiting, Abdominal Pain Objective Exam Vital Signs Vital Signs Date Time Temp Pulse Resp B/P (MAP) Pulse Ox O2 Delivery O2 Flow Rate FiO2 11/13/21 19:15 Room Air 11/13/21 15:39 35.8 88 20 115/80 (92) 100 Capillary Refill : General Appearance: No Apparent Distress, WD/WN, Chronically ill Respiratory: Lungs Clear, Normal Breath Sounds Cardiovascular: Regular Rate, Rhythm Neurologic/Psychiatric: Alert, Oriented x3, Depressed Affect Results/Procedures Lab Laboratory Tests 11/13/21 05:32 Patient resulted labs reviewed. Assessment/Plan Assessment and Plan Assess & Plan/Chief Complaint Assessment: Weakness Dehydration Hypothyroidism Asthma N/V Morbid obesity OA Ileus Plan: Monitor closely [facility]IV[facility] PT OT Dr Packer Diagnosis/Problems Diagnosis/Problems (1) Morbid obesity Status: Acute (2) Nausea vomiting and diarrhea Status: Acute (3) Generalized weakness Status: Acute (4) Debility Status: Acute Clinical Quality Measures DVT/VTE Risk/Contraindication: Contraindications-Mechi: Other *list below* Other: dvt JESSIKA KNOWLES DO Nov 13, 2021 06:07
[2021-11-13] MEDS: RIVAROXABAN 15 MG TABLET (XARELTO) PO SCH ×2 (06:15→18:10)
[2021-11-13] MEDS: LEVOTHYROXINE 25 MCG (LEVOTHROID) TAB PO SCH (06:15)
[2021-11-13 06:16] LABS: ALBUMIN 3.7 GM/DL (3.2-4.5); POTASSIUM 3.9 MMOL/L (3.6-5.0)
[2021-11-13 06:17] LABS: CALCIUM 9.2 MG/DL (8.5-10.1)
[2021-11-13 06:18] LABS: TOTAL PROTEIN 7.2 GM/DL (6.4-8.2)
[2021-11-13 06:20] LABS: BILIRUBIN,TOTAL 0.9 MG/DL (0.1-1.0)
[2021-11-13 06:22] LABS: CREATININE SERUM 1.24 MG/DL (0.60-1.30)
[2021-11-13] MEDS ORDERED: FLUTICASONE/VILANTEROL 100 MCG 14'S (BREO) IH PRN (07:00)
[2021-11-13 07:27] VITALS: BP 133/84
[2021-11-13] MEDS: SENNOSIDES 8.6 MG (SENOKOT) TAB PO SCH ×2 (08:21→19:12)
[2021-11-13] MEDS: DOCUSATE SODIUM 100 MG (COLACE) CAP PO SCH ×2 (08:21→19:12)
[2021-11-13] MEDS: CELECOXIB 100 MG (CeleBREX) CAP PO SCH (10:23)
--- NOTE | 2021-11-13 10:27 | Diagnostic Imaging Report ---
INDICATION: Vomiting. TIME OF EXAM: 10:04 AM FINDINGS: The heart size is normal. The lungs are clear. No infiltrates are seen. There is no effusion. No definite free air is identified. There is some mild gaseous distention to the colon. No definite wall thickening is seen. There is no pneumatosis. Small bowel is nondistended. No pathologic calcifications are seen. IMPRESSION: 1. There is some ylve-ug-sohwsoli gaseous distention to the colon, nonspecific. CT may be useful for further evaluation. No other significant abnormality is seen. Dictated by: Dictated on workstation # [id number]
--- NOTE | 2021-11-13 10:37 | Consultation - Surgery ---
History of Present Illness History of Present Illness Patient Consulted On(reinier/time) 11/13/21 10:31 Date Seen by Provider: Nov 13, 2021 Time Seen by Provider: 10:32 History of Present Illness Consult requested by Dr. Ruiz for n/v abdominal pain. Patient is a 46 year old female with morbid obesity, hx of dvt/pe and ivc filter placement. She is post covid-19 and has been feeling weak and not having any intake. Last night she began having nausea and had an episode of emesis. She was having generalized abdominal pain. No radiation of pain. Nothing really seemed to make worse. Today she started passing a lot of gas which resolved the abdominal pain, nausea and emesis. She had u/s lower extremities with b/l dvt's and is on anticoagulation. She also has IVC filter. Patient overall feeling weak and wanting to feel better. Has not had a bowel movement for 4-5 days she states but has not been eating either. Allergies and Home Medications Allergies Coded Allergies: ampicillin (Unverified Allergy, Mild, RASH, CHILLS, DIARRHEA, VOMITING, 03/20/13) meperidine HCl (Verified Allergy, Unknown, 12/21/14) Patient Home Medication List Home Medication List Reviewed: Yes Celecoxib (Celebrex) 100 Mg Capsule, 100 MG PO 1200, (Reported) Entered as Reported by: LIS GRANADOS on 11/12/211100 Last Action: Continued Fluticasone/Salmeterol (Advair 250-50 Diskus) 250 Mcg-50 Mcg/Dose Blst.w.dev, 1 EACH IH BID PRN for SHORTNESS OF BREATH, (Reported) Entered as Reported by: LIS GRANADOS on 11/12/211100 Last Action: Converted Hydrocodone/Acetaminophen (Hydrocodone-Acetamin 5-325 mg) 5 Mg-325 Mg Tablet, 1 TAB PO DAILY PRN for PAIN-MODERATE (5-7), (Reported) Entered as Reported by: LIS GRANADOS on 11/12/211100 Last Action: Continued Levothyroxine Sodium (Levothyroxine Sodium) 25 Mcg Tablet, 25 MCG PO DAILY, (Reported) Entered as Reported by: LIS GRANADOS on 11/12/211100 Last Action: Continued Naproxen Sodium (Aleve) 220 Mg Capsule, 220-440 MG PO Q12H PRN for PAIN-MILD (1- 4), (Reported) Entered as Reported by: LIS GRANADOS on 11/12/21 1101 Last Action: Held Discontinued Medications Albuterol Sulfate (Proair Hfa) 1 Puff Puff, 2 PUFF IH Q6H PRN for WHEEZING, (Reported) Discontinued Reason: No Longer Taking Entered as Reported by: PAZ MACIEL on 01/13/21 111 Last Action: Discontinued Albuterol Sulfate (Proair Hfa) 1 Puff Puff, 2 PUFF IH Q4H Discontinued Reason: No Longer Taking Prescribed by: IGOR JOHNS on 04/04/21 1352 Last Action: Discontinued Fluticasone/Salmeterol (Advair 250-50 Diskus) 1 Each Blst.w.dev, 1 EACH IH BID, (Reported) Discontinued Reason: No Longer Taking Entered as Reported by: PAZ MACIEL on 01/13/211115 Last Action: Discontinued Fluticasone/Salmeterol (Advair 250-50 Diskus) 1 Each Blst.w.dev, 1 EACH IH BID Discontinued Reason: No Longer Taking Prescribed by: IGOR JOHNS on 04/04/21 1352 Last Action: Discontinued Hydrocodone/Acetaminophen (Hydrocodone-Acetamin 5-325 mg) 1 Each Tablet, 1 TAB PO DAILY, (Reported) Discontinued Reason: No Longer Taking Entered as Reported by: PAZ MACIEL on 01/13/211115 Last Action: Discontinued Hydrocodone/Acetaminophen (Hydrocodone-Acetamin 5-325 mg) 1 Each Tablet, 1 TAB PO Q4H PRN for PAIN-MODERATE (5-7) Discontinued Reason: No Longer Taking Prescribed by: JED ROQUE on 01/16/21 1341 Last Action: Discontinued Meloxicam (Meloxicam) 7.5 Mg Tablet, 7.5 MG PO BID, (Reported) Discontinued Reason: No Longer Taking Entered as Reported by: PAZ MACIEL on 01/13/21 111 Last Action: Discontinued Nitrofurantoin Monohyd/M-Cryst (Macrobid 100 mg Capsule) 100 Mg Capsule, 1 TAB PO BID Discontinued Reason: No Longer Taking Prescribed by: AR HECK on 11/09/212125 Last Action: Discontinued Past Radrwcy-Thoflc-Zbjpdx Hx Patient Social History Smoking Status: Never a Smoker Recent Hopitalizations: No Alcohol Use?: No Have you traveled recently?: No Seasonal Allergies Seasonal Allergies: Yes Surgeries History of Surgeries: Yes (cerclage, c/s x2, NOE FILTER,) Surgeries: Section, 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, Vascular Surgery (IVC filter) Respiratory History of Respiratory Disorde: Yes Respiratory Disorders: Asthma Cardiovascular History of Cardiac Disorders: Yes (BLOOD CLOTS) Cardiac Disorders: Deep Vein Thrombosis Neurological History of Neurological Disord: No Reproductive System Hx Reproductive Disorders: Yes (DUB, MENORRHAGIA) 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 Genitourinary History of Genitourinary Disor: No Gastrointestinal History of Gastrointestinal Di: Yes Gastrointestinal Disorders: Irritable Bowel Musculoskeletal History of Musculoskeletal Dis: Yes Musculoskeletal Disorders: Degenerate Disk Disease, Chronic Back Pain Endocrine History of Endocrine Disorders: No HEENT History of HEENT Disorders: No Cancer History of Cancer: No Psychosocial History of Psychiatric Problem: No Integumentary History of Skin or Integumenta: No Blood Transfusions History of Blood Disorders: No Reviewed Nursing Assessment Reviewed/Agree w Nursing PMH: Yes Family Medical History Significant Family History: No Pertinent Family Hx Review of Systems-General Constitutional: No diaphoresis; weakness EENTM: No blurred vision, No double vision Respiratory: No dyspnea on exertion, No short of breath Cardiovascular: No chest pain, No palpitations Gastrointestinal: abdominal pain, nausea, vomiting Genitourinary: No decreased output, No discharge Musculoskeletal: No back pain, No joint pain Skin: No change in color, No change in hair/nails Psychiatric/Neurological: Denies Anxiety, Denies Depressed, Denies Emotional Problems All Other Systems Reviewed Negative Unless Noted: Yes (Negative excepted noted.) Physical Exam-General Problems Physical Exam Vital Signs Vital Signs - First Documented 11/11/21 11/11/21 09:20 16:00 Temp 36.3 Pulse 92 Resp 16 B/P (MAP) 115/101 (106) Pulse Ox 99 O2 Delivery Room Air Capillary Refill : General Appearance: no apparent distress, obese HEENT: PERRL/EOMI, normal ENT inspection Neck: non-tender, supple Respiratory: chest non-tender, no respiratory distress, no accessory muscle use Cardiovascular: regular rate, rhythm, no JVD Gastrointestinal: non tender, soft Rectal: deferred Back: normal inspection, no vertebral tenderness Extremities: non-tender, normal inspection Neurologic/Psychiatric: alert, normal mood/affect, oriented x 3 Skin: normal color, warm/dry Lymphatic: no adenopathy Data Review Labs Laboratory Tests 11/13/21 05:32: White Blood Count 13.6H, Red Blood Count 4.10, Hemoglobin 12.5, Hematocrit 39, Mean Corpuscular Volume 94, Mean Corpuscular Hemoglobin 31, Mean Corpuscular Hemoglobin Concent 33, Red Cell Distribution Width 12.5, Platelet Count 213, Mean Platelet Volume 10.6, Immature Granulocyte % (Auto) 1, Neutrophils (%) (Auto) 66, Lymphocytes (%) (Auto) 20, Monocytes (%) (Auto) 10, Eosinophils (%) (Auto) 3, Basophils (%) (Auto) 1, Neutrophils # (Auto) 8.9H, Lymphocytes # (Auto) 2.7, Monocytes # (Auto) 1.4H, Eosinophils # (Auto) 0.4H, Basophils # (Auto) 0.1, Immature Granulocyte # (Auto) 0.1, Sodium Level 132L, Potassium Level 3.9, Chloride Level 101, Carbon Dioxide Level 21, Anion Gap 10, Blood Urea Nitrogen 21H, Creatinine 1.24, Estimat Glomerular Filtration Rate 54, BUN/Creatinine Ratio 17, Glucose Level 114H, Calcium Level 9.2, Corrected Calcium 9.4, Total Bilirubin 0.9, Aspartate Amino Transf (AST/SGOT) 17, Alanine Aminotransferase (ALT/SGPT) 18, Alkaline Phosphatase 89, Total Protein 7.2, Albumin 3.7 Assessment/Plan Assessment/Plan Assessment/Plan morbid obesity n/v generalized abdominal pain b/l dvt's post Covid 19 Hx of IVC filter Patient n/v and abdominal pain resolved at this time. Awaiting abdominal series to be completed She is passing flatus so will start back on clears as long as x rays are okay, can advance diet as she tolerates On anticoagulation Clinical Quality Measures DVT/VTE Risk/Contraindication: Contraindications-Mechi: Other *list below* Other: dvt RUSTY MICHAEL DO Nov 13, 2021 10:37
[2021-11-13 11:44] VITALS: BP 142/89
--- NOTE | 2021-11-13 12:06 | Occupational Ther Daily Note ---
OT Current Status-Daily Note Subjective Pt in bed, required mod-max encouragement to participate in OT tx with focus on ADLs. ADL-Treatment Therapy Code Descriptions/Definitions Functional [place] Measure: 0=Not Assessed/NA 4=Minimal Assistance 1=Total Assistance 5=Supervision or Setup 2=Maximal Assistance 6=Modified [place] 3=Moderate Assistance 7=Complete IndependenceSCALE: Activities may be completed with or without assistive devices. 1-Vudpqfqcgr-tqgxofk completes the activity by him/herself with no assistance from a helper. 5-Set-up or Clean-up Assistance-helper sets up or cleans up; patient completes activity. [place] assists only prior to or following the activity. 4-Supervision or Touching Assistance-helper provides verbal cues and/or touching/steadying and/or contact guard assistance as patient completes activity. Assistance may be provided throughout the activity or intermittently. 3-Partial/Moderate Assistance-helper does LESS THAN HALF the effort. [place] lift s, holds or supports trunk or limbs, but provides less than half the effort. 2-Substantial/Maximal Assistance-helper does MORE THAN HALF the effort. [place] lifts or holds trunk or limbs and provides more than half the effort. 2-Izcfpnjpp-hvdmnw does ALL the effort. Patient does none of the effort to complete the activity. Or, the assistance of 2 or more helpers is required for the patient to complete the activity. If activity was not attempted, code reason: 7-Patient Refused. 9-Not Applicable-not attempted and the patient did not perform the activity before the current illness, exacerbation or injury. 10-Not Attempted due to Environmental Limitations-(lack of equipment, weather restraints, etc.). 88-Not Attempted due to Medical Conditions or Safety Concerns. Lower Body Dressing (QC): 2 On/Off Footwear: 2 Other Treatment Pt in bed, transferred supine to sit EOB, independently. Pt attempted to don BLE gripper socks, but unsuccessful to due increased swelling/lymphoma in BLEs. Pt instructed by physician not to don lymphoma garments for 2 months due to DVTs. Pt would require max A with LBD/footwear due to swelling, but indicates this is something her family can assist her. Pt declined OOB activities or getting up to chair. Pt transferred supine, independently. Post tx, pt in bed, call light in reach and all needs met. Education OT Patient Education: Correct positioning, Energy conservation, Modified ADL techniques, Progress toward Goal/Update tx plan, Purpose of tx/functional activities, Rehab process Teaching Recipient: Patient Teaching Methods: Discussion Response to Teaching: Reinforcement Needed OT Snf Goals Snf Goals Time Frame: Nov 13, 2021 Eating (QC): 6 Oral Hygiene (QC): 5 Toileting Hygiene (QC): 4 Shower/Bathe Self (QC): 4 Upper Body Dressing (QC): 5 Lower Body Dressing (QC): 4 On/Off Footwear (QC): 4 Additional Goals: 1-Demonstrate ADL Tasks, 2-Verbalize Understanding, 3- ImproveStrength/Becki 1=Demonstrate adherence to instructed precautions during ADL tasks. 2=Patient will verbalize/demonstrate understanding of assistive devices/modifications for ADL. 3=Patient will improve strength/tolerance for activity to enable patient to perform ADL's. OT Education/Plan Problem List/Assessment Assessment: Decreased Activ Tolerance, Decreased UE Strength, Impaired I ADL's, Impaired Self-Care Skills Pt would benefit from skilled OT services in order to increase BUE strength and activity tolerance, and increase independence with ADLs to maximize LOF for safe return home. Discharge Recommendations Plan/Recommendations: Continue POC Treatment Plan/Plan of Care Patient would benefit from OT for education, treatment and training to promote independence in ADL's, mobility, safety and/or upper extremity function for ADL's. Plan of Care: ADL Retraining, Functional Mobility, UE Funct Exercise/Act Treatment Duration: Nov 13, 2021 Frequency: 3 times per week Estimated Hrs Per Day: .25 hour per day Rehab Potential: Fair Time/GCodes Start Time: 11:23 Stop Time: 11:38 Total Time Billed (hr/min): 15 Billed Treatment Time 1, ADL STEPHANIE VIDAL OT Nov 13, 2021 12:06
[2021-11-13 15:39] VITALS: BP 115/80
[2021-11-14 00:40] VITALS: BP 112/72
[2021-11-14 05:21] LABS: BASOPHILS # (AUTO) 0.1 10^3/uL (0.0-0.1); BASOPHILS % (AUTO) 0 % (0-10); EOSINOPHILS # (AUTO) 0.5 10^3/uL (0.0-0.3); EOSINOPHILS % (AUTO) 4 % (0-10); HEMATOCRIT 37 % (35-52); LYMPHOCYTES # (AUTO) 2.6 10^3/uL (1.0-4.0); LYMPHOCYTES % (AUTO) 23 % (12-44); MEAN CORPUSCULAR HEMOGLOBIN 31 pg (25-34); MEAN CORPUSCULAR HGB CONC 33 g/dL (32-36); MEAN CORPUSCULAR VOLUME 95 fL (80-99); MEAN PLATELET VOLUME 10.1 fL (9.0-12.2); MONOCYTES # (AUTO) 1.2 10^3/uL (0.0-1.0); MONOCYTES % (AUTO) 11 % (0-12); NEUTROPHILS # (AUTO) 6.9 10^3/uL (1.8-7.8); NEUTROPHILS % (AUTO) 61 % (42-75); PLATELET COUNT 228 10^3/uL (130-400); WHITE BLOOD COUNT 11.3 10^3/uL (4.3-11.0)
[2021-11-14] MEDS ORDERED: RIVA15TA2 PO (05:28)
[2021-11-14] MEDS ORDERED: RIVA20TA2 PO (05:28)
[2021-11-14] MEDS ORDERED: ONDA4TAB11 PO (05:28)
--- NOTE | 2021-11-14 05:28 | Discharge Summary ---
Discharge Summary Hospital Course Was the Problem List Reviewed?: Yes Problems/Dx: (1) Morbid obesity Status: Acute (2) Nausea vomiting and diarrhea Status: Acute (3) Generalized weakness Status: Acute (4) Debility Status: Acute Hospital Course Date of Admission: Nov 11, 2021 at 11:36 Admission Diagnosis : Family Physician/Provider: Isaura Deluca MD Date of Discharge: 11/14/21 Discharge Diagnosis: Post COVID nausea and vomiting, debility, morbid obesity, ileus, nausea and vomiting Hospital Course: Pt had a lengthy Hospital course for observation due to weakness following COVID 10 days prior. She had nausea and vomiting that required Dr. Packer consult. Acute Abdominal Series showed Ileus she was placed on liquid diet. She was able to ambulate with PT/OT after slow recovery due to Morbid Obesity BMI of 62. She was deemed stable for discharge. She will also be placed on anti-coagulation and that was sent to the pharmacy. 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 Labs and Pending Lab Test: Laboratory Tests 11/13/21 05:32: White Blood Count 13.6H, Red Blood Count 4.10, Hemoglobin 12.5, Hematocrit 39, Mean Corpuscular Volume 94, Mean Corpuscular Hemoglobin 31, Mean Corpuscular Hemoglobin Concent 33, Red Cell Distribution Width 12.5, Platelet Count 213, Mean Platelet Volume 10.6, Immature Granulocyte % (Auto) 1, Neutrophils (%) (Auto) 66, Lymphocytes (%) (Auto) 20, Monocytes (%) (Auto) 10, Eosinophils (%) (Auto) 3, Basophils (%) (Auto) 1, Neutrophils # (Auto) 8.9H, Lymphocytes # (Auto) 2.7, Monocytes # (Auto) 1.4H, Eosinophils # (Auto) 0.4H, Basophils # (Auto) 0.1, Immature Granulocyte # (Auto) 0.1, Sodium Level 132L, Potassium Level 3.9, Chloride Level 101, Carbon Dioxide Level 21, Anion Gap 10, Blood Urea Nitrogen 21H, Creatinine 1.24, Estimat Glomerular Filtration Rate 54, BUN/Creatinine Ratio 17, Glucose Level 114H, Calcium Level 9.2, Corrected Calcium 9.4, Total Bilirubin 0.9, Aspartate Amino Transf (AST/SGOT) 17, Alanine Aminotransferase (ALT/SGPT) 18, Alkaline Phosphatase 89, Total Protein 7.2, Albumin 3.7 11/14/21 05:03: White Blood Count 11.3H, Red Blood Count 3.86, Hemoglobin 12.0, Hematocrit 37, Mean Corpuscular Volume 95, Mean Corpuscular Hemoglobin 31, Mean Corpuscular Hemoglobin Concent 33, Red Cell Distribution Width 12.7, Platelet Count 228, Mean Platelet Volume 10.1, Immature Granulocyte % (Auto) 1, Neutrophils (%) (Auto) 61, Lymphocytes (%) (Auto) 23, Monocytes (%) (Auto) 11, Eosinophils (%) (Auto) 4, Basophils (%) (Auto) 0, Neutrophils # (Auto) 6.9, Lymphocytes # (Auto) 2.6, Monocytes # (Auto) 1.2H, Eosinophils # (Auto) 0.5H, Basophils # (Auto) 0.1, Immature Granulocyte # (Auto) 0.2H, Sodium Level [Pending], Potassium Level [Pending], Chloride Level [Pending], Carbon Dioxide Level [Pending], Anion Gap [Pending], Blood Urea Nitrogen [Pending], Creatinine [Pending], BUN/Creatinine Ratio [Pending], Glucose Level [Pending], Calcium Level [Pending], Corrected Calcium [Pending], Total Bilirubin [Pending], Aspartate Amino Transf (AST/SGOT) [Pending], Alanine Aminotransferase (ALT/SGPT) [Pending], Alkaline Phosphatase [Pending], Total Protein [Pending], Albumin [Pending] Home Meds Active Reported Aleve (Naproxen Sodium) 220 Mg Capsule 220-440 Mg PO Q12H PRN Celebrex (Celecoxib) 100 Mg Capsule 100 Mg PO 1200 Levothyroxine Sodium 25 Mcg Tablet 25 Mcg PO DAILY Hydrocodone-Acetamin 5-325 mg (Hydrocodone/Acetaminophen) 5 Mg-325 Mg Tablet 1 Tab PO DAILY PRN Advair 250-50 Diskus (Fluticasone/Salmeterol) 250 Mcg-50 Mcg/Dose Blst.w.dev 1 Each IH BID PRN Assessment/Pt Instructions PCP in 1 week Discharge Planning: <30 minutes discharge planning Discharge Instructions Discharge Diet: Eat Small Frequent Meals Discharge Physical Examination Vital Signs Vital Signs Date Time Temp Pulse Resp B/P (MAP) Pulse Ox O2 Delivery O2 Flow Rate FiO2 7/2/22 00:40 36.6 89 20 112/72 (85) 94 Room Air General Appearance: No Apparent Distress, WD/WN, Chronically ill, Obese Respiratory: Lungs Clear, Normal Breath Sounds Cardiovascular: Regular Rate, Rhythm Neurologic/Psychiatric: Alert, Oriented x3, No Motor/Sensory Deficits, Normal Mood/Affect Allergies: Coded Allergies: ampicillin (Unverified Allergy, Mild, RASH, CHILLS, DIARRHEA, VOMITING, 03/20/13) meperidine HCl (Verified Allergy, Unknown, 12/21/14) Discharge Summary Date of Admission Nov 11, 2021 at 11:36 Date of Discharge Discharge Date: Nov 14, 2021 Admission Diagnosis Assessment: Weakness Dehydration Hypothyroidism Asthma N/V Morbid obesity OA Plan: Monitor closely [facility] PT OT Discharge Diagnosis Assessment: Weakness Dehydration Hypothyroidism Asthma N/V Morbid obesity OA Ileus Plan: Monitor closely [facility] PT OT Dr Packer (1) Morbid obesity Status: Acute (2) Nausea vomiting and diarrhea Status: Acute (3) Generalized weakness Status: Acute (4) Debility Status: Acute Clinical Quality Measures DVT/VTE Risk/Contraindication: Contraindications-Mechi: Other *list below* Other: dvt JESSIKA KNOWLES DO Nov 14, 2021 05:28
[2021-11-14 05:29] LABS: ALBUMIN 3.5 GM/DL (3.2-4.5)
[2021-11-14 05:30] LABS: POTASSIUM 3.7 MMOL/L (3.6-5.0)
[2021-11-14 05:32] LABS: TOTAL PROTEIN 6.9 GM/DL (6.4-8.2)
[2021-11-14 05:36] LABS: CREATININE SERUM 1.17 MG/DL (0.60-1.30)
[2021-11-14] MEDS: LEVOTHYROXINE 25 MCG (LEVOTHROID) TAB PO SCH (06:06)
[2021-11-14] MEDS: RIVAROXABAN 15 MG TABLET (XARELTO) PO SCH (06:06)
[2021-11-14 07:22] VITALS: BP 112/77
--- NOTE | 2021-11-14 11:19 | Progress Note - Surgery ---
Subjective Date Seen by a Provider: Nov 14, 2021 Time Seen by a Provider: 10:14 Subjective/Events-last exam Patient feeling better today. No abdominal pain. Tolerating liquids. Not having nausea or emesis. Denies n/v fever sweats chills shortness of breath or chest pain at this time. Objective Exam Vital Signs Date Time Temp Pulse Resp B/P (MAP) Pulse Ox O2 Delivery O2 Flow Rate FiO2 11/14/21 08:22 Room Air 11/14/21 07:22 36.1 88 20 112/77 (89) 98 Room Air 11/14/21 00:40 36.6 89 20 112/72 (85) 94 Room Air 11/13/21 19:15 Room Air 11/13/21 15:39 35.8 88 20 115/80 (92) 100 Room Air 11/13/21 11:44 36.0 85 18 142/89 (106) 100 Room Air I & O 11/14/21 07:00 Intake Total 1000 ml Output Total 400 ml Balance 600 ml Capillary Refill : General Appearance: No Apparent Distress, Chronically ill, Obese HEENT: PERRL/EOMI, Normal ENT Inspection, Pharynx Normal, Moist Mucous Membranes Neck: Full Range of Motion, Normal Inspection, Non Tender Respiratory: Chest Non Tender, No Accessory Muscle Use, No Respiratory Distress Cardiovascular: Regular Rate, Rhythm, No JVD Gastrointestinal: non tender, soft Extremity: Normal Capillary Refill, Normal Inspection, Normal Range of Motion, Non Tender, No Calf Tenderness, No Pedal Edema Neurologic/Psychiatric: Alert, Oriented x3, Depressed Affect Skin: Normal Color, Warm/Dry Lymphatic: No Adenopathy Results Lab Laboratory Tests 11/14/21 05:03: White Blood Count 11.3H, Red Blood Count 3.86, Hemoglobin 12.0, Hematocrit 37, Mean Corpuscular Volume 95, Mean Corpuscular Hemoglobin 31, Mean Corpuscular Hemoglobin Concent 33, Red Cell Distribution Width 12.7, Platelet Count 228, Mean Platelet Volume 10.1, Immature Granulocyte % (Auto) 1, Neutrophils (%) (Auto) 61, Lymphocytes (%) (Auto) 23, Monocytes (%) (Auto) 11, Eosinophils (%) (Auto) 4, Basophils (%) (Auto) 0, Neutrophils # (Auto) 6.9, Lymphocytes # (Auto) 2.6, Monocytes # (Auto) 1.2H, Eosinophils # (Auto) 0.5H, Basophils # (Auto) 0.1, Immature Granulocyte # (Auto) 0.2H, Sodium Level 133L, Potassium Level 3.7, Chloride Level 100, Carbon Dioxide Level 21, Anion Gap 12, Blood Urea Nitrogen 20H, Creatinine 1.17, Estimat Glomerular Filtration Rate 58, BUN/Creatinine Ratio 17, Glucose Level 107H, Calcium Level 9.0, Corrected Calcium 9.4, Total Bilirubin 1.0, Aspartate Amino Transf (AST/SGOT) 18, Alanine Aminotransferase (ALT/SGPT) 20, Alkaline Phosphatase 90, Total Protein 6.9, Albumin 3.5 Assessment/Plan Assessment/Plan Assessment/Plan morbid obesity n/v generalized abdominal pain b/l dvt's post Covid 19 Hx of IVC filter Patient n/v and abdominal pain resolved advance diet as tolerates She is passing flatus so bowel function returned, limited recent oral intake, due to above so feel this will improved. On anticoagulation No surgical intervention, if tolerated diet can dc from surgical standpoint. Clinical Quality Measures DVT/VTE Risk/Contraindication: Contraindications-Mechi: Other *list below* Other: dvt RUSTY MICHAEL DO Nov 14, 2021 11:19
[2021-11-14] MEDS: SENNOSIDES 8.6 MG (SENOKOT) TAB PO SCH (13:15)
[2021-11-14] MEDS: CELECOXIB 100 MG (CeleBREX) CAP PO SCH (13:15)
[2021-11-14] MEDS: DOCUSATE SODIUM 100 MG (COLACE) CAP PO SCH (13:15)
[2021-11-14 16:58] VITALS: BP 112/77
[2021-12-04] MEDS ORDERED: RIVAROXABAN 20 MG TABLET (XARELTO) PO SCH (17:00)
== END 2021-11-14 16:59 | disposition home or self-care (01) ==
LOC: EDUNIT# 09:09 → ER 09:11 → 4TH 11:36
PROVIDERS: ADMIT Internal Medicine; ATTEND Internal Medicine
DX: U07.1 COVID-19 (principal); E66.01 Morbid (severe) obesity due to excess calories; R53.1 Weakness; R19.7 Diarrhea, unspecified; E86.0 Dehydration; E03.9 Hypothyroidism, unspecified; J45.909 Unspecified asthma, uncomplicated; M19.90 Unspecified osteoarthritis, unspecified site; Z68.44 Body mass index [BMI] 60.0-69.9, adult
CPT/HCPCS: 36415; 51702; 71045; 74022; 80053; 80061; 83735; 83874; 84145; 84484; 85007; 85025; 85027; 85610; 85730; 86141; 93005; 93041; 96361; 96372; 96374; 96375; 96376; G0378

== ENCOUNTER → 2021-11-11 | Outpatient (CLI) | payer OTHER ==
[~2021-11-11] MED LIST changes: +CELE100C PO; +LEVO25TA5 PO; +NAPR220C11 PO; +NITR-65 PO; +ONDA4TAB11 PO; +RIVA15TA2 PO; +RIVA20TA2 PO
--- NOTE | 2021-11-11 09:29 | Diagnostic Imaging Report ---
PROCEDURE: US Venous Lower Ext Tim. TECHNIQUE: Multiple Real-time grayscale images were obtained over the lower extremities in various projections, bilaterally. Additional duplex Doppler and color Doppler images were also obtained. INDICATION: Elevated D-dimer with bilateral leg pain. FINDINGS: Extensive thrombus is seen throughout the bilateral lower extremity deep venous systems. Thrombus is seen extending from the common femoral veins as well as superficial and popliteal veins. There is thrombus extending into the calf veins bilaterally. IMPRESSION: Extensive bilateral lower extremity DVT. Dictated by: Dictated on workstation # [id number]
== END ==
LOC: RAD 08:30
PROVIDERS: ATTEND Nurse Practitioner
DX: I82.403 Acute embolism and thrombosis of unspecified deep veins of lower extremity, bilateral (principal); R79.1 Abnormal coagulation profile
CPT/HCPCS: 93970